=== PATIENT | female | born 1945 | race Caucasian/White ===

== ENCOUNTER 2021-08-24 12:51 | Inpatient (IN) | payer MEDICARE ==
[2021-08-24] MEDS ORDERED: PIPERACILLIN-TAZOBACTAM 3.375 GM in SODIUM CHLORIDE 0.9% 100 ML IVPB STA (15:30)
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
[2021-08-24] MEDS ORDERED: VANCOMYCIN IV PER PHARMACY 1 EACH MISC MISCELLANE PRN ×2 (15:49→20:19)
[2021-08-24] MEDS ORDERED: DILTIAZEM 5 MG/ML 5 ML VIAL IVP STA (17:04)
--- NOTE | 2021-08-24 18:02 | XR ---
EXAMINATION: XR chest 2V DATE AND TIME: 08/24/2021 5:46 PM CLINICAL INDICATION: PHH; bruising TECHNIQUE: AP and lateral views COMPARISON: None FINDINGS: Prominent overlying soft tissues noted. The lungs are clear. The pleural spaces are negative. The cardiac silhouette is mildly enlarged. The remainder of the mediastinal silhouette is unremarkabl e. The skeletal structures show moderately advanced degenerative changes at the glenohumeral joints. No acute skeletal findings. Soft tissues are negative for acute findings. IMPRESSION: NO ACUTE PROCESS.
--- NOTE | 2021-08-24 18:03 | XR ---
PROCEDURE: XR sacrum coccyx - 3V DATE AND TIME: 08/24/2021 5:46 PM CLINICAL INDICATION: PHH; ulcer TECHNIQUE: Department protocol COMPARISON: None FINDINGS: There is no definite acute fracture or malalignment. The soft tissues are unremarkable. IMPRESSION: No definite acute process.
[2021-08-24 18:09] LABS: Basophils % (A) 0 %; Eosinophils % (A) 0 %; HCT 33.5 % (34.0-46.0); HGB 9.8 gm/dL (11.4-16.0); Hypochromasia Moderate; Lymphocytes # (A) 0.4 k/uL (1.0-4.8); Lymphocytes % (A) 2 %; MCH 27.5 pg (25.0-35.0); MCHC 29.2 g/dL (31.0-37.0); MCV 94.2 fL (80.0-100.0); Mean Platelet Volume 9.1; Monocytes # (A) 0.6 k/uL (0-1.0); Monocytes % (A) 4 %; Neutrophils # (A) 14.9 k/uL (1.3-7.7); Neutrophils % (A) 92 %; Platelet Count 426 k/uL (150-450); RBC 3.56 m/uL (3.80-5.40); RDW 15.8 % (11.5-15.5); WBC 16.2 k/uL (3.8-10.6)
[2021-08-24] MEDS: DILTIAZEM 125 MG in SODIUM CHLORIDE 0.9% 100 ML IV SCH (18:11)
[2021-08-24 18:30] LABS: Albumin 2.4 g/dL (3.5-5.0); Potassium 4.2 mmol/L (3.5-5.1); Total Bilirubin 1.9 mg/dL (0.2-1.3); Total Protein 5.5 g/dL (6.3-8.2)
[2021-08-24] MEDS ORDERED: NALOXONE 0.4 MG/ML 1 ML VIAL IV PRN (18:30)
[2021-08-24] MEDS ORDERED: VANCOMYCIN 1,500 MG in SODIUM CHLORIDE 0.9% 250 ML IVPB STA (18:41)
[2021-08-24] MEDS ORDERED: SODIUM CHLORIDE 0.9% 1,000 ML IV ONE (18:43)
[2021-08-24] MEDS: SODIUM CHLORIDE 0.9% 1,000 ML IV SCH (19:12)
[2021-08-24] MEDS: ACETAMINOPHEN TAB 325 MG TAB PO PRN (20:03)
[2021-08-24] MEDS ORDERED: hydroCHLOROthiazide 12.5 MG CAP PO SCH (21:00)
[2021-08-24 23:45] LABS: Glucose,Whole Blood 290 mg/dL (75-99)
[2021-08-25 00:19] LABS: Appearance,Urine Cloudy (Clear); Bacteria,Urine Rare /hpf; Bilirubin,Urine Negative (Negative); Blood,Urine Negative (Negative); Color,Urine Yellow; Glucose,Urine (UA) Trace (Negative); Hyaline Casts,Urine 8 /lpf (0-2); Ketones,Urine Negative (Negative); Leukocyte Esterase,Urine Negative (Negative); Mucus,Urine Rare /hpf; Nitrite,Urine Negative (Negative); Protein,Urine Trace (Negative); RBC,Urine 1 /hpf (0-5); Specific Gravity,Urine 1.018 (1.001-1.035); Squamous Epithelial Cell,Urine <1 /hpf (0-4); Urobilinogen,Urine <2.0 mg/dL (<2.0); WBC,Urine 3 /hpf (0-5)
[2021-08-25] MEDS: SODIUM CHLORIDE 0.9% 1,000 ML IV SCH ×4 (00:30→09:00)
[2021-08-25] MEDS ORDERED: NOREPINEPHRIN 4 MG-0.9% NS PMX 4 MG/250 ML ML IV ONE (02:30)
[2021-08-25] MEDS: NOREPINEPHRINE 4 MG in SODIUM CHLORIDE 0.9% 250 ML IV SCH ×2 (03:04→13:55)
--- NOTE | 2021-08-25 07:47 | XR ---
EXAMINATION TYPE: XR chest 1V DATE OF EXAM: 08/25/2021 COMPARISON: 08/24/2021 INDICATION: Short of breath TECHNIQUE: Single frontal view of the chest is obtained. FINDINGS: The heart size is mildly prominent. The pulmonary vasculature is normal. Mild left lower lobe infiltrate may be developing. Correlate for atelectasis or pneumonia. Advanced degenerative changes bilateral shoulders. IMPRESSION: 1. Clinical correlation recommended for developing left basilar atelectasis or pneumonia
[2021-08-25 08:15] LABS: Glucose,Whole Blood 286 mg/dL (75-99)
[2021-08-25] MEDS: PANTOPRAZOLE 40 MG/10 ML VIAL IV SCH (08:59)
[2021-08-25] MEDS: METOPROLOL TARTRATE 25 MG TAB PO SCH ×2 (09:00→17:06)
[2021-08-25] MEDS ORDERED: lisinopriL 10 MG TAB PO SCH (09:00)
[2021-08-25] MEDS: ATORVASTATIN 40 MG TAB PO SCH (09:00)
[2021-08-25] MEDS: INSULIN ASPART (NovoLOG) 100 UNIT/ML VIAL SQ SCH ×4 (09:06→20:49)
[2021-08-25 10:13] LABS: Calcium 7.5 mg/dL (8.4-10.2); Magnesium 2.3 mg/dL (1.6-2.3); Potassium 3.6 mmol/L (3.5-5.1); Total Bilirubin 1.1 mg/dL (0.2-1.3); Total Protein 4.7 g/dL (6.3-8.2)
[2021-08-25 10:16] LABS: Anisocytosis Slight; Basophils # (A) 0.1 k/uL (0-0.2); Basophils % (A) 1 %; Eosinophils % (A) 0 %; HGB 8.8 gm/dL (11.4-16.0); Hypochromasia Marked; Lymphocytes # (A) 0.6 k/uL (1.0-4.8); Lymphocytes % (A) 4 %; MCHC 30.3 g/dL (31.0-37.0); MCV 95.7 fL (80.0-100.0); Mean Platelet Volume 8.3; Monocytes # (A) 0.6 k/uL (0-1.0); Monocytes % (A) 4 %; Neutrophils # (A) 13.1 k/uL (1.3-7.7); Neutrophils % (A) 89 %; Platelet Count 438 k/uL (150-450); RBC 3.03 m/uL (3.80-5.40); RDW 16.3 % (11.5-15.5); WBC 14.8 k/uL (3.8-10.6)
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
[2021-08-25] MEDS ORDERED: POTASSIUM CHLORIDE ER 20 MEQ TAB.ER PO STA (10:56)
--- NOTE | 2021-08-25 11:20 | US ---
EXAMINATION TYPE: US kidneys/renal and bladder DATE OF EXAM: 08/25/2021 COMPARISON: NONE CLINICAL HISTORY: manjinder. Abnormal labs. ICU patient. Bladder candelario. EXAM MEASUREMENTS: Right Kidney: 10.7 x 4.5 x 4.7 cm Left Kidney: 10.2 x 4.9 x 5.2 cm Right Kidney: No hydronephrosis or masses seen Left Kidney: Limited due to patient body habitus and position. No prominent masses or lesions seen Bladder: unable to visualize IMPRESSION: 1. Normal renal ultrasound as limitedly visualized.
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
[2021-08-25 13:24] LABS: Glucose,Whole Blood 256 mg/dL (75-99)
[2021-08-25] MEDS: AMPICILLIN-SULBACTAM 3 GM in SODIUM CHLORIDE 0.9% 100 ML IVPB SCH (13:25)
[2021-08-25] MEDS: DILTIAZEM 125 MG in SODIUM CHLORIDE 0.9% 100 ML IV SCH (13:53)
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
[2021-08-25 17:11] LABS: Glucose,Whole Blood 195 mg/dL (75-99)
[2021-08-25] MEDS: DEXTROSE 5% IN WATER 1,000 ML with SODIUM BICARB (1 MEQ/ML) 150 ML IV SCH (17:12)
[2021-08-25] MEDS ORDERED: VANCOMYCIN 1,500 MG in SODIUM CHLORIDE 0.9% 250 ML IVPB ONE (18:00)
[2021-08-25 20:41] LABS: Glucose,Whole Blood 186 mg/dL (75-99)
[2021-08-25] MEDS: HYDROmorphone 0.5 MG/0.5 ML SYRINGE IVP PRN (21:49)
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
[2021-08-26] MEDS: NOREPINEPHRINE 4 MG in SODIUM CHLORIDE 0.9% 250 ML IV SCH ×2 (02:00→10:07)
[2021-08-26] MEDS: AMPICILLIN-SULBACTAM 3 GM in SODIUM CHLORIDE 0.9% 100 ML IVPB SCH ×3 (02:22→20:59)
[2021-08-26] MEDS: DEXTROSE 5% IN WATER 1,000 ML with SODIUM BICARB (1 MEQ/ML) 150 ML IV SCH (06:00)
[2021-08-26 07:01] LABS: Anisocytosis Slight; Basophils # (A) 0.1 k/uL (0-0.2); Basophils % (A) 1 %; Eosinophils # (A) 0.1 k/uL (0-0.7); Eosinophils % (A) 1 %; HCT 30.6 % (34.0-46.0); Hypochromasia Marked; Lymphocytes # (A) 0.3 k/uL (1.0-4.8); Lymphocytes % (A) 3 %; MCH 27.8 pg (25.0-35.0); MCHC 29.4 g/dL (31.0-37.0); MCV 94.3 fL (80.0-100.0); Mean Platelet Volume 8.2; Monocytes # (A) 0.8 k/uL (0-1.0); Monocytes % (A) 7 %; Neutrophils # (A) 10.4 k/uL (1.3-7.7); Neutrophils % (A) 86 %; Platelet Count 361 k/uL (150-450); RBC 3.25 m/uL (3.80-5.40); RDW 16.1 % (11.5-15.5); WBC 12.1 k/uL (3.8-10.6)
[2021-08-26 07:12] LABS: Albumin 1.9 g/dL (3.5-5.0); Calcium 7.7 mg/dL (8.4-10.2); Potassium 3.3 mmol/L (3.5-5.1); Total Bilirubin 0.9 mg/dL (0.2-1.3); Total Protein 4.5 g/dL (6.3-8.2)
[2021-08-26 07:12] LABS: Glucose,Whole Blood 233 mg/dL (75-99)
[2021-08-26] MEDS: INSULIN ASPART (NovoLOG) 100 UNIT/ML VIAL SQ SCH ×4 (07:14→20:59)
[2021-08-26 07:48] LABS: Vancomycin,Random 23.8 ug/mL
[2021-08-26] MEDS: ATORVASTATIN 40 MG TAB PO SCH (08:38)
[2021-08-26] MEDS: PANTOPRAZOLE 40 MG/10 ML VIAL IV SCH (08:38)
[2021-08-26] MEDS: METOPROLOL TARTRATE 25 MG TAB PO SCH ×2 (08:38→17:42)
[2021-08-26] MEDS ORDERED: POTASSIUM CHLORIDE ER 20 MEQ TAB.ER PO STA (09:18)
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
--- NOTE | 2021-08-26 10:06 | P.PN ---
Subjective Patient is seen in follow-up for acute kidney injury. Renal function improving. Nonoliguric. On bicarb drip. Also on Levophed. Vital signs are stable. General: Awake. No acute distress. HEENT: Head exam is unremarkable. LUNGS: Breath sounds decreased. HEART: Irregular rate and rhythm. ABDOMEN: Soft, no distention. EXTREMITITES: Right AKA noted. Chronic changes noted left lower extremity. Objective - Vital Signs Vital signs: Vital Signs Temp 97.7 F 08/26/21 08:00 Pulse 128 H 08/26/21 09:00 Resp 15 08/26/21 09:00 BP 116/72 08/26/21 09:00 Pulse Ox 94 L 08/26/21 09:00 FiO2 Intake & Output 08/25/21 08/26/21 08/26/21 18:59 06:59 18:59 Intake Total 2109.976 2074.545 452.424 Output Total 595 935 264 Balance 8424.305 8727.545 188.424 Weight 95.1 kg Intake: IV 890 1310 330 0.9 NACl- 110 30 D5 with Sodium Bicarb ( 1100 300 150mEq) Sodium Chloride 0.9% 1, 890 000 ml @ 100 mls/hr IV . Q10H [facility] Rx#:[id number] Unasyn 3gm 100 Intake, IV Titration 1219.976 339.545 122.424 Amount Ampicillin-Sulbactam 3 gm 200 In Sodium Chloride 0.9% 100 ml @ 200 mls/hr IVPB Q12H [facility] Rx#:[id number] Dextrose 5% in Water 1, 500 000 ml @ 100 mls/hr IV . [id number] [facility] with Sodium Bicarb (1 Meq/ml) 150 ml Rx#:[id number] Diltiazem 125 mg In 60.333 Sodium Chloride 0.9% 100 ml @ 5 MG/HR 5 mls/hr IV .Q24H [facility] Rx#:[id number] Norepinephrine 4 mg In 209.643 339.545 122.424 Sodium Chloride 0.9% 250 ml @ 0.05 MCG/KG/MIN 19. 01 mls/hr IV .[id number] [facility] Rx#:[id number] Vancomycin 1,500 mg In 250 Sodium Chloride 0.9% 250 ml @ 125 mls/hr IVPB ONCE ONE Rx#:[id number] Oral 425 Output: Urine 595 935 264 Other: Voiding Method Indwelling Catheter Indwelling Catheter Indwelling Catheter # Bowel Movements 1 - Labs CBC & Chem 7: 08/26/21 06:41 08/26/21 06:41 Labs: Abnormal Lab Results - Last 24 Hours (Table) 08/25/21 08/25/21 08/25/21 Range/Units 09:28 09:28 13:23 WBC 14.8 H (3.8-10.6) k/uL RBC 3.03 L (3.80-5.40) m/uL Hgb 8.8 L (11.4-16.0) gm/dL Hct 29.0 L (34.0-46.0) % MCHC 30.3 L (31.0-37.0) g/dL RDW 16.3 H (11.5-15.5) % Neutrophils # 13.1 H (1.3-7.7) k/uL Lymphocytes # 0.6 L (1.0-4.8) k/uL Potassium (3.5-5.1) mmol/L Chloride 109 H (98-107) mmol/L Carbon Dioxide 15 L (22-30) mmol/L BUN 118 H* (7-17) mg/dL Creatinine 1.84 H (0.52-1.04) mg/dL Glucose 241 H (74-99) mg/dL POC Glucose (mg/dL) 256 H (75-99) mg/dL Hemoglobin A1c (0.0-6.0) % Calcium 7.5 L (8.4-10.2) mg/dL AST 111 H (14-36) U/L ALT 56 H (4-34) U/L Total Protein 4.7 L (6.3-8.2) g/dL Albumin 2.0 L (3.5-5.0) g/dL 08/25/21 08/25/21 08/26/21 Range/Units 17:10 20:39 06:41 WBC (3.8-10.6) k/uL RBC (3.80-5.40) m/uL Hgb (11.4-16.0) gm/dL Hct (34.0-46.0) % MCHC (31.0-37.0) g/dL RDW (11.5-15.5) % Neutrophils # (1.3-7.7) k/uL Lymphocytes # (1.0-4.8) k/uL Potassium (3.5-5.1) mmol/L Chloride (98-107) mmol/L Carbon Dioxide (22-30) mmol/L BUN (7-17) mg/dL Creatinine (0.52-1.04) mg/dL Glucose (74-99) mg/dL POC Glucose (mg/dL) 195 H 186 H (75-99) mg/dL Hemoglobin A1c 8.4 H (0.0-6.0) % Calcium (8.4-10.2) mg/dL AST (14-36) U/L ALT (4-34) U/L Total Protein (6.3-8.2) g/dL Albumin (3.5-5.0) g/dL 08/26/21 08/26/21 08/26/21 Range/Units 06:41 06:41 07:09 WBC 12.1 H (3.8-10.6) k/uL RBC 3.25 L (3.80-5.40) m/uL Hgb 9.0 L (11.4-16.0) gm/dL Hct 30.6 L (34.0-46.0) % MCHC 29.4 L (31.0-37.0) g/dL RDW 16.1 H (11.5-15.5) % Neutrophils # 10.4 H (1.3-7.7) k/uL Lymphocytes # 0.3 L (1.0-4.8) k/uL Potassium 3.3 L (3.5-5.1) mmol/L Chloride 109 H (98-107) mmol/L Carbon Dioxide (22-30) mmol/L BUN 93 H (7-17) mg/dL Creatinine 1.26 H (0.52-1.04) mg/dL Glucose 222 H (74-99) mg/dL POC Glucose (mg/dL) 233 H (75-99) mg/dL Hemoglobin A1c (0.0-6.0) % Calcium 7.7 L (8.4-10.2) mg/dL AST 80 H (14-36) U/L ALT 45 H (4-34) U/L Total Protein 4.5 L (6.3-8.2) g/dL Albumin 1.9 L (3.5-5.0) g/dL Microbiology - Last 24 Hours (Table) 08/25/21 13:50 Urine Culture - Preliminary Urine,Catheterized 08/24/21 17:14 Blood Culture - Preliminary Blood No Growth after 24 hours 08/24/21 17:00 Blood Culture - Preliminary Blood No Growth after 24 hours Assessment and Plan Plan: Assessment: 1. Acute kidney injury secondary to ATN secondary to septic shock. Creatinine 2.2 on admission - 1.26 today. Unknown baseline renal function. UA with trace protein. Nonoliguric. No hydronephrosis noted on kidney ultrasound. 2. Sacral decubitus ulcer. On antibiotics. Scheduled for debridement tomorrow. 3. A. fib with RVR maintained on metoprolol. 4. Metabolic acidosis secondary to acute kidney injury and lactic acidosis. Improved. 5. Hypokalemia from poor intake. Magnesium normal. Plan: Stop bicarb drip. Start normal saline at 75 mL an hour. Replace potassium. Wean vasopressors. Follow-up cultures. Continue to monitor renal function and urine output. Monitor vancomycin levels. Dose to be adjusted for renal function.
[2021-08-26] MEDS: SODIUM CHLORIDE 0.9% 1,000 ML IV SCH (10:09)
--- NOTE | 2021-08-26 10:59 | P.PN ---
Subjective Progress Note Date: 08/26/21 The patient is a 75-year-old female who is currently admitted to the hospital with septicemia. Cardiology was consulted for A. fib with RVR, which is a new finding for the patient. She is currently on IV Cardizem as well as leaflet drip for hypotension. Heart rates are currently in the 1 teens to 120s. The patient was interviewed and examined in the ICU. She states she did well overnight. She does have shortness of breath, however feels comfortable at rest. No chest pains. GENERAL: Ill-appearing, obese female. NECK: Supple without JVD or thyromegaly. LUNGS: Breath sounds diminished to auscultation bilaterally. Respiration equal and unlabored. No wheezes, rales or rhonchi. HEART: Irregular rate and rhythm without murmurs, rubs or gallops. S1 and S2 heard. Notably tachycardic EXTREMITIES: Right AKA. No clubbing or cyanosis. Left peripheral pulses palpable. Moderate generalized edema VITALS: Blood pressure 86/61. Heart rate 102, respiratory rate 18, SpO2 95% TELEMETRY: A. fib with heart rate in the 1 teens to 120s LABS: WBC 12.1, hemoglobin 9.0, hematocrit 30.6, platelet 361, sodium 140, potassium 3.3, BUN 93, creatinine 1.26, AST 80, ALT 45 IMPRESSION: A. fib with RVR, new onset, no history per patient Septicemia, being followed by infectious disease Decubitus ulcer Chronic kidney disease, GFR 42 Hypokalemia, supplementation per protocol Hypotension, management per design project manager PLAN: No change in cardiac medications at this time Anticoagulation indicated, however this will be managed by the primary team based upon her fall risk and pending need for any surgical procedures Further recommendations to be based on clinical course I am dictating on behalf of Dr Marco Sinclair's history/physical and assessment/plan. Objective - Vital Signs Vital signs: Vital Signs Temp 97.7 F 08/26/21 08:00 Pulse 102 H 08/26/21 10:00 Resp 18 08/26/21 10:00 BP 86/61 08/26/21 10:00 Pulse Ox 95 08/26/21 10:00 FiO2 Intake & Output 08/25/21 08/26/21 08/26/21 18:59 06:59 18:59 Intake Total 2109.976 2074.545 587.771 Output Total 595 935 304 Balance 9245.555 0360.545 283.771 Weight 95.1 kg Intake: IV 890 1310 440 0.9 NACl- 110 40 D5 with Sodium Bicarb ( 1100 400 150mEq) Sodium Chloride 0.9% 1, 890 000 ml @ 100 mls/hr IV . Q10H [facility] Rx#:[id number] Unasyn 3gm 100 Intake, IV Titration 1219.976 339.545 147.771 Amount Ampicillin-Sulbactam 3 gm 200 In Sodium Chloride 0.9% 100 ml @ 200 mls/hr IVPB Q12H [facility] Rx#:[id number] Dextrose 5% in Water 1, 500 000 ml @ 100 mls/hr IV . [id number] [facility] with Sodium Bicarb (1 Meq/ml) 150 ml Rx#:[id number] Diltiazem 125 mg In 60.333 Sodium Chloride 0.9% 100 ml @ 5 MG/HR 5 mls/hr IV .Q24H [facility] Rx#:[id number] Norepinephrine 4 mg In 209.643 339.545 147.771 Sodium Chloride 0.9% 250 ml @ 0.05 MCG/KG/MIN 19. 01 mls/hr IV .[id number] [facility] Rx#:[id number] Vancomycin 1,500 mg In 250 Sodium Chloride 0.9% 250 ml @ 125 mls/hr IVPB ONCE ONE Rx#:[id number] Oral 425 Output: Urine 595 935 304 Other: Voiding Method Indwelling Catheter Indwelling Catheter Indwelling Catheter # Bowel Movements 1 - Labs CBC & Chem 7: 08/26/21 06:41 08/26/21 06:41 Labs: Abnormal Lab Results - Last 24 Hours (Table) 08/25/21 08/25/21 08/25/21 Range/Units 13:23 17:10 20:39 WBC (3.8-10.6) k/uL RBC (3.80-5.40) m/uL Hgb (11.4-16.0) gm/dL Hct (34.0-46.0) % MCHC (31.0-37.0) g/dL RDW (11.5-15.5) % Neutrophils # (1.3-7.7) k/uL Lymphocytes # (1.0-4.8) k/uL Potassium (3.5-5.1) mmol/L Chloride (98-107) mmol/L BUN (7-17) mg/dL Creatinine (0.52-1.04) mg/dL Glucose (74-99) mg/dL POC Glucose (mg/dL) 256 H 195 H 186 H (75-99) mg/dL Hemoglobin A1c (0.0-6.0) % Calcium (8.4-10.2) mg/dL AST (14-36) U/L ALT (4-34) U/L Total Protein (6.3-8.2) g/dL Albumin (3.5-5.0) g/dL 08/26/21 08/26/21 08/26/21 Range/Units 06:41 06:41 06:41 WBC 12.1 H (3.8-10.6) k/uL RBC 3.25 L (3.80-5.40) m/uL Hgb 9.0 L (11.4-16.0) gm/dL Hct 30.6 L (34.0-46.0) % MCHC 29.4 L (31.0-37.0) g/dL RDW 16.1 H (11.5-15.5) % Neutrophils # 10.4 H (1.3-7.7) k/uL Lymphocytes # 0.3 L (1.0-4.8) k/uL Potassium 3.3 L (3.5-5.1) mmol/L Chloride 109 H (98-107) mmol/L BUN 93 H (7-17) mg/dL Creatinine 1.26 H (0.52-1.04) mg/dL Glucose 222 H (74-99) mg/dL POC Glucose (mg/dL) (75-99) mg/dL Hemoglobin A1c 8.4 H (0.0-6.0) % Calcium 7.7 L (8.4-10.2) mg/dL AST 80 H (14-36) U/L ALT 45 H (4-34) U/L Total Protein 4.5 L (6.3-8.2) g/dL Albumin 1.9 L (3.5-5.0) g/dL 08/26/21 Range/Units 07:09 WBC (3.8-10.6) k/uL RBC (3.80-5.40) m/uL Hgb (11.4-16.0) gm/dL Hct (34.0-46.0) % MCHC (31.0-37.0) g/dL RDW (11.5-15.5) % Neutrophils # (1.3-7.7) k/uL Lymphocytes # (1.0-4.8) k/uL Potassium (3.5-5.1) mmol/L Chloride (98-107) mmol/L BUN (7-17) mg/dL Creatinine (0.52-1.04) mg/dL Glucose (74-99) mg/dL POC Glucose (mg/dL) 233 H (75-99) mg/dL Hemoglobin A1c (0.0-6.0) % Calcium (8.4-10.2) mg/dL AST (14-36) U/L ALT (4-34) U/L Total Protein (6.3-8.2) g/dL Albumin (3.5-5.0) g/dL Microbiology - Last 24 Hours (Table) 08/25/21 13:50 Urine Culture - Preliminary Urine,Catheterized 08/24/21 17:14 Blood Culture - Preliminary Blood No Growth after 24 hours 08/24/21 17:00 Blood Culture - Preliminary Blood No Growth after 24 hours
[2021-08-26 11:20] LABS: Glucose,Whole Blood 217 mg/dL (75-99)
--- NOTE | 2021-08-26 11:28 | P.PN ---
Progress Note - Text Progress Note Date: 08/26/21 Patient been stable. We will plan for debridement of decubitus ulcer on Saturday.
[2021-08-26] MEDS: ACETAMINOPHEN TAB 325 MG TAB PO PRN (13:02)
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
[2021-08-26] MEDS: HYDROmorphone 0.5 MG/0.5 ML SYRINGE IVP PRN (14:24)
[2021-08-26 17:32] LABS: Glucose,Whole Blood 247 mg/dL (75-99)
[2021-08-26] MEDS: VANCOMYCIN 1,750 MG in SODIUM CHLORIDE 0.9% 500 ML 500 ML IVPB SCH (17:41)
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
[2021-08-26 20:54] LABS: Glucose,Whole Blood 221 mg/dL (75-99)
[2021-08-26] MEDS: INSULIN DETEMIR (LEVEMIR) 100 UNIT/ML SYR SQ SCH (21:00)
[2021-08-27] MEDS: NOREPINEPHRINE 4 MG in SODIUM CHLORIDE 0.9% 250 ML IV SCH ×2 (00:35→22:55)
[2021-08-27] MEDS: HYDROmorphone 0.5 MG/0.5 ML SYRINGE IVP PRN ×2 (06:37→20:03)
[2021-08-27] MEDS: AMPICILLIN-SULBACTAM 3 GM in SODIUM CHLORIDE 0.9% 100 ML IVPB SCH ×3 (06:37→21:19)
[2021-08-27 06:46] LABS: Glucose,Whole Blood 124 mg/dL (75-99)
[2021-08-27 07:57] LABS: Potassium 4.2 mmol/L (3.5-5.1)
[2021-08-27] MEDS: PANTOPRAZOLE 40 MG/10 ML VIAL IV SCH (07:58)
[2021-08-27] MEDS: ATORVASTATIN 40 MG TAB PO SCH (07:58)
[2021-08-27] MEDS: METOPROLOL TARTRATE 25 MG TAB PO SCH (07:58)
[2021-08-27] MEDS: INSULIN ASPART (NovoLOG) 100 UNIT/ML VIAL SQ SCH ×4 (07:59→21:21)
[2021-08-27 08:06] LABS: Anisocytosis Slight; Basophils # (A) 0.1 k/uL (0-0.2); Basophils % (A) 0 %; Eosinophils # (A) 0.1 k/uL (0-0.7); Eosinophils % (A) 0 %; HCT 29.8 % (34.0-46.0); HGB 9.3 gm/dL (11.4-16.0); Hypochromasia Moderate; Lymphocytes # (A) 0.6 k/uL (1.0-4.8); Lymphocytes % (A) 5 %; MCH 28.7 pg (25.0-35.0); MCHC 31.4 g/dL (31.0-37.0); MCV 91.2 fL (80.0-100.0); Mean Platelet Volume 8.6; Monocytes % (A) 8 %; Neutrophils # (A) 10.1 k/uL (1.3-7.7); Neutrophils % (A) 83 %; Platelet Count 385 k/uL (150-450); RBC 3.26 m/uL (3.80-5.40); RDW 16.6 % (11.5-15.5); WBC 12.1 k/uL (3.8-10.6)
[2021-08-27] MEDS: DILTIAZEM 125 MG in SODIUM CHLORIDE 0.9% 100 ML IV SCH ×3 (08:34→23:35)
--- NOTE | 2021-08-27 09:20 | P.PN ---
Subjective Patient is seen in follow-up for acute kidney injury. Renal function improving. Nonoliguric. Receiving normal saline. Also on Levophed. Vital signs are stable. On vasopressor support. General: Awake. No acute distress. HEENT: Head exam is unremarkable. LUNGS: Breath sounds decreased. HEART: Irregular rate and rhythm. ABDOMEN: Soft, no distention. EXTREMITITES: Right AKA noted. Chronic changes noted left lower extremity. Objective - Vital Signs Vital signs: Vital Signs Temp 97.7 F 08/27/21 00:00 Pulse 144 H 08/27/21 06:00 Resp 22 08/27/21 06:00 BP 112/92 08/27/21 06:00 Pulse Ox 95 08/27/21 06:00 FiO2 Intake & Output 08/26/21 08/27/21 08/27/21 18:59 06:59 18:59 Intake Total 9577.785 5573.819 75 Output Total 649 590 35 Balance 1182.952 654.819 40 Weight 95.1 kg 97.2 kg Intake: IV 1075 1100 75 0.9 NACl- 575 900 75 D5 with Sodium Bicarb ( 400 150mEq) Unasyn 3gm 100 200 Intake, IV Titration 756.952 144.819 Amount Norepinephrine 4 mg In 256.952 144.819 Sodium Chloride 0.9% 250 ml @ 0.05 MCG/KG/MIN 19. 01 mls/hr IV .[id number] [facility] Rx#:[id number] Vancomycin 1,750 mg In 500 Sodium Chloride 0.9% 500 ml 500 ml @ 167 mls/hr IVPB Q24HR@1600 [facility] Rx#: [id number] Output: Urine 649 590 35 Other: Voiding Method Indwelling Catheter Indwelling Catheter - Labs CBC & Chem 7: 08/27/21 07:19 08/27/21 07:19 Labs: Abnormal Lab Results - Last 24 Hours (Table) 08/26/21 08/26/21 08/26/21 Range/Units 11:18 17:29 20:52 WBC (3.8-10.6) k/uL RBC (3.80-5.40) m/uL Hgb (11.4-16.0) gm/dL Hct (34.0-46.0) % RDW (11.5-15.5) % Neutrophils # (1.3-7.7) k/uL Lymphocytes # (1.0-4.8) k/uL Chloride (98-107) mmol/L Carbon Dioxide (22-30) mmol/L BUN (7-17) mg/dL Creatinine (0.52-1.04) mg/dL Glucose (74-99) mg/dL POC Glucose (mg/dL) 217 H 247 H 221 H (75-99) mg/dL Calcium (8.4-10.2) mg/dL 08/27/21 08/27/21 08/27/21 Range/Units 06:44 07:19 07:19 WBC 12.1 H (3.8-10.6) k/uL RBC 3.26 L (3.80-5.40) m/uL Hgb 9.3 L (11.4-16.0) gm/dL Hct 29.8 L (34.0-46.0) % RDW 16.6 H (11.5-15.5) % Neutrophils # 10.1 H (1.3-7.7) k/uL Lymphocytes # 0.6 L (1.0-4.8) k/uL Chloride 113 H (98-107) mmol/L Carbon Dioxide 21 L (22-30) mmol/L BUN 73 H (7-17) mg/dL Creatinine 1.06 H (0.52-1.04) mg/dL Glucose 130 H (74-99) mg/dL POC Glucose (mg/dL) 124 H (75-99) mg/dL Calcium 8.0 L (8.4-10.2) mg/dL Microbiology - Last 24 Hours (Table) 08/24/21 17:00 Blood Culture - Preliminary Blood No Growth after 48 hours 08/24/21 17:14 Blood Culture - Preliminary Blood No Growth after 48 hours 08/25/21 16:06 Blood Culture - Preliminary Blood No Growth after 24 hours 08/25/21 13:50 Urine Culture - Final Urine,Catheterized Assessment and Plan Plan: Assessment: 1. Acute kidney injury secondary to ATN secondary to septic shock. Creatinine 2.2 on admission - 1.06 today. Unknown baseline renal function. UA with trace protein. Nonoliguric. No hydronephrosis noted on kidney ultrasound. 2. Sacral decubitus ulcer. On antibiotics. Scheduled for debridement on Saturday. 3. A. fib with RVR maintained on metoprolol. 4. Metabolic acidosis secondary to acute kidney injury and lactic acidosis. Improved. 5. Hypokalemia from poor intake. Magnesium normal. Replace. Better. Plan: Maintain normal saline at 75 mL an hour. Wean vasopressors. Follow-up cultures. Continue to monitor renal function and urine output. Monitor vancomycin levels. Dose to be adjusted for renal function.
[2021-08-27 11:08] LABS: Glucose,Whole Blood 126 mg/dL (75-99)
[2021-08-27] MEDS: SODIUM CHLORIDE 0.9% 1,000 ML IV SCH ×3 (11:10→23:36)
--- NOTE | 2021-08-27 11:40 | P.PN ---
Subjective Progress Note Date: 08/27/21 The patient is a 75-year-old female who is currently admitted to the hospital with septicemia. Cardiology was consulted for A. fib with RVR, which is a new finding for the patient. IV Cardizem was held for hypotension. The patient is currently on low-dose levofed. The patient was interviewed and examined in the ICU. She states she did well overnight. She does have shortness of breath, however feels comfortable at rest. No chest pains. GENERAL: Ill-appearing, obese female. NECK: Supple without JVD or thyromegaly. LUNGS: Breath sounds diminished to auscultation bilaterally. Respiration equal and unlabored. No wheezes, rales or rhonchi. HEART: Irregular rate and rhythm without murmurs, rubs or gallops. S1 and S2 heard. Notably tachycardic EXTREMITIES: Right AKA. No clubbing or cyanosis. Left peripheral pulses palpable. Moderate generalized edema VITALS: Blood pressure 106/92, pulse 131, respiratory rate 16, SpO2 97% TELEMETRY: A. fib with heart rate in the 120s to 140s LABS: WBC 12.1, hemoglobin 9.3, hematocrit 29.8, platelet 385, sodium 143, potassium 4.2, BUN 73, creatinine 1.06 IMPRESSION: A. fib with RVR, new onset, no history per patient Septicemia, being followed by infectious disease Decubitus ulcer Chronic kidney disease, GFR 42 Hypokalemia, supplementation per protocol Hypotension, management per registered public surveyor PLAN: Increase metoprolol to 3 times a day Anticoagulation indicated, however this will be managed by the primary team based upon her fall risk and pending need for any surgical procedures Echocardiogram once heart rates are better controlled Further recommendations to be based on clinical course I am dictating on behalf of Dr Marco Sinclair's history/physical and assessment/plan. Objective - Vital Signs Vital signs: Vital Signs Temp 97.8 F 08/27/21 08:00 Pulse 122 H 08/27/21 11:00 Resp 14 08/27/21 11:00 BP 80/53 08/27/21 11:00 Pulse Ox 96 08/27/21 11:00 FiO2 Intake & Output 08/26/21 08/27/21 08/27/21 18:59 06:59 18:59 Intake Total 1837.540 7252.819 595.960 Output Total 649 590 260 Balance 1182.952 654.819 335.960 Weight 95.1 kg 97.2 kg Intake: IV 1075 1100 375 0.9 NACl- 575 900 375 D5 with Sodium Bicarb ( 400 150mEq) Unasyn 3gm 100 200 Intake, IV Titration 756.952 144.819 220.960 Amount Norepinephrine 4 mg In 256.952 144.819 220.960 Sodium Chloride 0.9% 250 ml @ 0.05 MCG/KG/MIN 19. 01 mls/hr IV .[id number] [facility] Rx#:[id number] Vancomycin 1,750 mg In 500 Sodium Chloride 0.9% 500 ml 500 ml @ 167 mls/hr IVPB Q24HR@1600 [facility] Rx#: [id number] Output: Urine 649 590 260 Other: Voiding Method Indwelling Catheter Indwelling Catheter - Labs CBC & Chem 7: 08/27/21 07:19 08/27/21 07:19 Labs: Abnormal Lab Results - Last 24 Hours (Table) 08/26/21 08/26/21 08/27/21 Range/Units 17:29 20:52 06:44 WBC (3.8-10.6) k/uL RBC (3.80-5.40) m/uL Hgb (11.4-16.0) gm/dL Hct (34.0-46.0) % RDW (11.5-15.5) % Neutrophils # (1.3-7.7) k/uL Lymphocytes # (1.0-4.8) k/uL Chloride (98-107) mmol/L Carbon Dioxide (22-30) mmol/L BUN (7-17) mg/dL Creatinine (0.52-1.04) mg/dL Glucose (74-99) mg/dL POC Glucose (mg/dL) 247 H 221 H 124 H (75-99) mg/dL Calcium (8.4-10.2) mg/dL 08/27/21 08/27/21 08/27/21 Range/Units 07:19 07:19 11:06 WBC 12.1 H (3.8-10.6) k/uL RBC 3.26 L (3.80-5.40) m/uL Hgb 9.3 L (11.4-16.0) gm/dL Hct 29.8 L (34.0-46.0) % RDW 16.6 H (11.5-15.5) % Neutrophils # 10.1 H (1.3-7.7) k/uL Lymphocytes # 0.6 L (1.0-4.8) k/uL Chloride 113 H (98-107) mmol/L Carbon Dioxide 21 L (22-30) mmol/L BUN 73 H (7-17) mg/dL Creatinine 1.06 H (0.52-1.04) mg/dL Glucose 130 H (74-99) mg/dL POC Glucose (mg/dL) 126 H (75-99) mg/dL Calcium 8.0 L (8.4-10.2) mg/dL Microbiology - Last 24 Hours (Table) 08/24/21 17:00 Blood Culture - Preliminary Blood No Growth after 48 hours 08/24/21 17:14 Blood Culture - Preliminary Blood No Growth after 48 hours 08/25/21 16:06 Blood Culture - Preliminary Blood No Growth after 24 hours 08/25/21 13:50 Urine Culture - Final Urine,Catheterized
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
--- NOTE | 2021-08-27 11:58 | P.PN ---
Progress Note - Text Progress Note Date: 08/27/21 Patient remains clinically unchanged. We will plan for debridement gives ulcer tomorrow.
[2021-08-27] MEDS ORDERED: METOPROLOL TARTRATE 25 MG TAB PO SCH (16:00)
[2021-08-27 16:02] LABS: Glucose,Whole Blood 200 mg/dL (75-99)
[2021-08-27] MEDS: VANCOMYCIN 1,750 MG in SODIUM CHLORIDE 0.9% 500 ML 500 ML IVPB SCH (16:27)
[2021-08-27] MEDS ORDERED: TERBUTALINE FOR EXTRAVASATION 1 MG/ML VIAL SQ STA (17:15)
[2021-08-27] MEDS: METOPROLOL TARTRATE 50 MG TAB PO SCH (19:49)
[2021-08-27 20:55] LABS: Glucose,Whole Blood 319 mg/dL (75-99)
[2021-08-27] MEDS: HEPARIN SODIUM,PORCINE/PF 5,000 UNIT/0.5 ML SYRINGE SQ SCH (21:20)
[2021-08-27] MEDS: INSULIN DETEMIR (LEVEMIR) 100 UNIT/ML SYR SQ SCH (21:21)
[2021-08-28] MEDS: AMPICILLIN-SULBACTAM 3 GM in SODIUM CHLORIDE 0.9% 100 ML IVPB SCH ×3 (04:55→20:58)
[2021-08-28 06:11] LABS: Glucose,Whole Blood 232 mg/dL (75-99)
[2021-08-28] MEDS: HYDROmorphone 0.5 MG/0.5 ML SYRINGE IVP PRN ×3 (06:48→18:25)
[2021-08-28 07:47] LABS: Calcium 7.5 mg/dL (8.4-10.2); Potassium 3.9 mmol/L (3.5-5.1)
[2021-08-28] MEDS: PANTOPRAZOLE 40 MG/10 ML VIAL IV SCH (08:37)
[2021-08-28] MEDS: HEPARIN SODIUM,PORCINE/PF 5,000 UNIT/0.5 ML SYRINGE SQ SCH (08:37)
[2021-08-28] MEDS: METOPROLOL TARTRATE 50 MG TAB PO SCH ×3 (08:37→21:00)
[2021-08-28] MEDS: ATORVASTATIN 40 MG TAB PO SCH (08:37)
[2021-08-28] MEDS: INSULIN ASPART (NovoLOG) 100 UNIT/ML VIAL SQ SCH ×4 (09:21→20:58)
--- NOTE | 2021-08-28 10:22 | P.PN ---
Subjective Patient is in atrial fibrillation with poorly controlled ventricular rate. Blood pressures have been low. She is awaiting wounded debridement by surgeon. On exam patient is comfortable at rest heart rate is poorly controlled blood pressure is 90/60 chest exam reveals good air entry bilaterally heart exam reveals first and second heart sounds are regular rhythm systolic murmur at the apex abdomen is soft exam extremities shows chronic stasis changes edema decubitus ulcer Labs show that the hemoglobin is 9.3 Persistent atrial fibrillation with poorly controlled ventricular rate Patient is to have debridement of decubitus ulcer. Once that is done we will start the patient on intravenous heparin. I will add amiodarone for rate control. He will she will continue beta blockers and Cardizem at this time Objective - Vital Signs Vital signs: Vital Signs Temp 97.6 F 08/28/21 08:00 Pulse 96 08/28/21 10:00 Resp 21 08/28/21 10:00 BP 79/40 08/28/21 10:00 Pulse Ox 98 08/28/21 10:00 FiO2 Intake & Output 08/27/21 08/28/21 08/28/21 18:59 06:59 18:59 Intake Total 2980.387 6993.775 320.57 Output Total 615 513 60 Balance 776.681 876.775 260.57 Weight 98.6 kg Intake: IV 900 1035 320 0.9 NACl- 900 900 300 Cardizem 35 20 Unasyn 3gm 100 Intake, IV Titration 241.681 54.775 0.57 Amount Diltiazem 125 mg In 0 Sodium Chloride 0.9% 100 ml @ 5 MG/HR 5 mls/hr IV .Q24H [facility] Rx#:[id number] Norepinephrine 4 mg In 241.681 54.775 0.57 Sodium Chloride 0.9% 250 ml @ 0.05 MCG/KG/MIN 19. 01 mls/hr IV .[id number] [facility] Rx#:[id number] Oral 250 300 Output: Urine 615 513 60 Other: Voiding Method Indwelling Catheter Indwelling Catheter - Labs CBC & Chem 7: 08/27/21 07:19 08/28/21 06:22 Labs: Abnormal Lab Results - Last 24 Hours (Table) 08/27/21 08/27/21 08/27/21 Range/Units 11:06 15:59 20:52 Chloride (98-107) mmol/L Carbon Dioxide (22-30) mmol/L BUN (7-17) mg/dL Glucose (74-99) mg/dL POC Glucose (mg/dL) 126 H 200 H 319 H (75-99) mg/dL Calcium (8.4-10.2) mg/dL 08/28/21 08/28/21 Range/Units 06:09 06:22 Chloride 113 H (98-107) mmol/L Carbon Dioxide 20 L (22-30) mmol/L BUN 55 H (7-17) mg/dL Glucose 201 H (74-99) mg/dL POC Glucose (mg/dL) 232 H (75-99) mg/dL Calcium 7.5 L (8.4-10.2) mg/dL Microbiology - Last 24 Hours (Table) 08/24/21 17:00 Blood Culture - Preliminary Blood No Growth after 72 hours 08/24/21 17:14 Blood Culture - Preliminary Blood No Growth after 72 hours 08/25/21 16:06 Blood Culture - Preliminary Blood No Growth after 48 hours
[2021-08-28 11:17] LABS: Glucose,Whole Blood 147 mg/dL (75-99)
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
[2021-08-28 11:44] LABS: Anisocytosis Slight; Basophils # (A) 0.1 k/uL (0-0.2); Basophils % (A) 1 %; Eosinophils # (A) 0.1 k/uL (0-0.7); Eosinophils % (A) 1 %; HCT 28.5 % (34.0-46.0); HGB 8.9 gm/dL (11.4-16.0); Hypochromasia Moderate; Lymphocytes # (A) 0.9 k/uL (1.0-4.8); Lymphocytes % (A) 9 %; MCH 28.8 pg (25.0-35.0); MCHC 31.2 g/dL (31.0-37.0); MCV 92.3 fL (80.0-100.0); Mean Platelet Volume 8.7; Monocytes # (A) 0.6 k/uL (0-1.0); Monocytes % (A) 6 %; Neutrophils # (A) 7.9 k/uL (1.3-7.7); Neutrophils % (A) 81 %; Platelet Count 307 k/uL (150-450); RBC 3.09 m/uL (3.80-5.40); RDW 16.8 % (11.5-15.5); WBC 9.7 k/uL (3.8-10.6)
[2021-08-28] MEDS ORDERED: POTASSIUM CHLORIDE ER 20 MEQ TAB.ER PO SCH (12:00)
[2021-08-28] MEDS: NOREPINEPHRINE 4 MG in SODIUM CHLORIDE 0.9% 250 ML IV SCH ×2 (12:01→23:48)
[2021-08-28] MEDS: SODIUM CHLORIDE 0.9% 1,000 ML IV SCH (12:08)
--- NOTE | 2021-08-28 12:43 | P.PN ---
Subjective Patient is seen for follow-up for acute kidney injury. Renal function has been improving Currently off of levo fed Urine output drops likely to about 20 mL an hour but it has picked up for the last couple of hours. Serum creatinine down to 0.9 mg/dL. Patient is going for debridement today Objective - Vital Signs Vital signs: Vital Signs Temp 97.6 F 08/28/21 08:00 Pulse 105 H 08/28/21 12:00 Resp 22 08/28/21 12:00 BP 105/57 08/28/21 12:00 Pulse Ox 99 08/28/21 12:00 FiO2 Intake & Output 08/27/21 08/28/21 08/28/21 18:59 06:59 18:59 Intake Total 3735.497 9768.775 586.78 Output Total 615 513 120 Balance 776.681 876.775 466.78 Weight 98.6 kg Intake: IV 900 1035 580 0.9 NACl- 900 900 450 Ampicillin-Sulbactam 3 gm 100 In Sodium Chloride 0.9% 100 ml @ 200 mls/hr IVPB Q8H [facility] Rx#:[id number] Cardizem 35 30 Unasyn 3gm 100 Intake, IV Titration 241.681 54.775 6.78 Amount Diltiazem 125 mg In 0 Sodium Chloride 0.9% 100 ml @ 5 MG/HR 5 mls/hr IV .Q24H NUS[facility]AT Rx#:[id number] Norepinephrine 4 mg In 241.681 54.775 6.78 Sodium Chloride 0.9% 250 ml @ 0.05 MCG/KG/MIN 19. 01 mls/hr IV .[id number] NUSRAT Rx#:[id number] Oral 250 300 Output: Urine 615 513 120 Other: Voiding Method Indwelling Catheter Indwelling Catheter Indwelling Catheter - Exam Awake, comfortable, not in any acute distress Examination of the heart S1 and S2 Examination of lungs bilateral breath sounds are heard Abdomen is soft morbidly obese Examination of lower ex Mittie shows chronic skin changes significant edema left lower extremity. Right AKA - Labs CBC & Chem 7: 08/28/21 10:09 08/28/21 06:22 Labs: Abnormal Lab Results - Last 24 Hours (Table) 08/27/21 08/27/21 08/28/21 Range/Units 15:59 20:52 06:09 RBC (3.80-5.40) m/uL Hgb (11.4-16.0) gm/dL Hct (34.0-46.0) % RDW (11.5-15.5) % Neutrophils # (1.3-7.7) k/uL Lymphocytes # (1.0-4.8) k/uL Chloride (98-107) mmol/L Carbon Dioxide (22-30) mmol/L BUN (7-17) mg/dL Glucose (74-99) mg/dL POC Glucose (mg/dL) 200 H 319 H 232 H (75-99) mg/dL Calcium (8.4-10.2) mg/dL 08/28/21 08/28/21 08/28/21 Range/Units 06:22 10:09 11:15 RBC 3.09 L (3.80-5.40) m/uL Hgb 8.9 L (11.4-16.0) gm/dL Hct 28.5 L (34.0-46.0) % RDW 16.8 H (11.5-15.5) % Neutrophils # 7.9 H (1.3-7.7) k/uL Lymphocytes # 0.9 L (1.0-4.8) k/uL Chloride 113 H (98-107) mmol/L Carbon Dioxide 20 L (22-30) mmol/L BUN 55 H (7-17) mg/dL Glucose 201 H (74-99) mg/dL POC Glucose (mg/dL) 147 H (75-99) mg/dL Calcium 7.5 L (8.4-10.2) mg/dL Microbiology - Last 24 Hours (Table) 08/24/21 17:00 Blood Culture - Preliminary Blood No Growth after 72 hours 08/24/21 17:14 Blood Culture - Preliminary Blood No Growth after 72 hours 08/25/21 16:06 Blood Culture - Preliminary Blood No Growth after 48 hours Assessment and Plan Assessment: 1. Acute kidney injury secondary to septic shock and ATN. Currently improving UA showed trace protein. No evidence of obstruction on ultrasound 2. Sacral decubitus ulcer scheduled for debridement today 3. A. fib with RVR maintained on Cardizem drip 4. Metabolic acidosis associated with acute kidney injury and lactic acidosis currently improved Plan: Continue with saline Repeat labs in a.m.
[2021-08-28] MEDS ORDERED: LIDOCAINE 1% INJ 10MG/ML (30 ML VIAL-PF) SQ ONE (14:15)
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
--- NOTE | 2021-08-28 14:42 | IR ---
EXAMINATION TYPE: IR cvc insert >=5 years DATE OF EXAM: 08/28/2021 COMPARISON: NONE CLINICAL HISTORY: Infection Needs long-term intravenous access for antibiotics. PROCEDURE: Hand hygiene obtained with soap and water and alcohol-based hand rub. After informed consent, the skin overlying the left cephalic vein was localized with ultrasound and n oted to be compressible and patent. An ultrasound image was obtained and submitted on the patient's chart. The overlying skin was prepped and draped and Lidocaine was used for local anesthesia. A ski n ramos was made with a scalpel. Access was gained to the vein under ultrasound guidance with a 21 ga uge needle and a 0.018 inch wire was advanced but could not be advanced centrally. Attention was the n directed to the left basilic vein. Using similar technique access was gained to the vein. Access si te was dilated with Peel-Away sheath and catheter tailored to the appropriate length and advanced suc h that the distal tip is near the cavoatrial junction. Post procedure chest x-ray was obtained verify ing placement the tip overlying superior vena cava. Catheter was fixed to the skin and a sterile chapo ssing was placed following hemostasis. Catheter was aspirated and flushed with saline. Patient was discharged in stable condition without complication.Maximal barrier technique is utilized. Ultrasoun d image is documented on the chart. Ultrasound used with sterile technique. IMPRESSION: STATUS POST ULTRASOUND GUIDED PICC LINE PLACEMENT, READY FOR USE. THIS PROCEDURE WAS PER FORMED BY THE UNDERSIGNED.
[2021-08-28] MEDS ORDERED: VANCOMYCIN TROUGH DUE 1 EACH MISC MISCELLANE ONE (15:00)
[2021-08-28] MEDS ORDERED: HEPARIN SODIUM 1,000 UN/ML (10ML VL) IV ONE (15:07)
[2021-08-28] MEDS ORDERED: HEPARIN SODIUM 1,000 UN/ML (10ML VL) IV PRN (15:07)
--- NOTE | 2021-08-28 15:43 | XR ---
EXAMINATION TYPE: XR chest 1V confirm line [facility] DATE OF EXAM: 08/28/2021 HISTORY: Shortness of breath. COMPARISON: 08/25/2021 TECHNIQUE: Single view of the chest is submitted. FINDINGS: Demonstrated are scattered senescent parenchymal change. Left-sided PICC line with distal tip overlyi ng the SVC. No evidence for pneumothorax. There is no evidence for focal infiltrate. The heart is stable. Hilar and mediastinal structures are within normal limits. Degenerative changes are seen of the dorsal spine. IMPRESSION: 1. Chronic changes without evidence for acute pulmonary disease.
[2021-08-28] MEDS: HEPARIN SOD,PORK IN 0.45% NACL 25,000 UNIT in 0.45% NACL 1 250ML.BAG IV SCH (16:13)
[2021-08-28] MEDS: VANCOMYCIN 1,750 MG in SODIUM CHLORIDE 0.9% 500 ML 500 ML IVPB SCH (16:15)
[2021-08-28] MEDS: DILTIAZEM 125 MG in SODIUM CHLORIDE 0.9% 100 ML IV SCH (16:18)
[2021-08-28 17:18] LABS: Glucose,Whole Blood 150 mg/dL (75-99)
[2021-08-28] MEDS: MIDODRINE 5 MG TAB PO SCH (17:51)
[2021-08-28 20:11] LABS: Glucose,Whole Blood 175 mg/dL (75-99)
[2021-08-28 20:53] LABS: INR 1.1 (<1.2); Partial Thromboplastin Time 62.4 sec (22.0-30.0); Prothrombin Time 11.6 sec (9.0-12.0)
[2021-08-28] MEDS: INSULIN DETEMIR (LEVEMIR) 100 UNIT/ML SYR SQ SCH (20:58)
[2021-08-29] MEDS: AMPICILLIN-SULBACTAM 3 GM in SODIUM CHLORIDE 0.9% 100 ML IVPB SCH ×3 (04:18→20:41)
[2021-08-29] MEDS: SODIUM CHLORIDE 0.9% 1,000 ML IV SCH ×2 (04:18→20:43)
[2021-08-29] MEDS: HYDROmorphone 0.5 MG/0.5 ML SYRINGE IVP PRN (05:41)
[2021-08-29 06:44] LABS: Glucose,Whole Blood 101 mg/dL (75-99)
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
[2021-08-29] MEDS: INSULIN ASPART (NovoLOG) 100 UNIT/ML VIAL SQ SCH ×4 (07:11→20:42)
[2021-08-29] MEDS: MIDODRINE 5 MG TAB PO SCH ×2 (07:23→18:31)
[2021-08-29 08:26] LABS: INR 1.1 (<1.2); Partial Thromboplastin Time 26.8 sec (22.0-30.0); Prothrombin Time 11.3 sec (9.0-12.0)
[2021-08-29 08:32] LABS: Calcium 7.4 mg/dL (8.4-10.2)
[2021-08-29 08:37] LABS: Anisocytosis Slight; HCT 28.2 % (34.0-46.0); HGB 8.5 gm/dL (11.4-16.0); Hypochromasia Marked; MCH 29.3 pg (25.0-35.0); MCHC 30.2 g/dL (31.0-37.0); MCV 96.9 fL (80.0-100.0); Macrocytosis Slight; Mean Platelet Volume 8.6; Platelet Count 270 k/uL (150-450); RBC 2.91 m/uL (3.80-5.40); RDW 16.8 % (11.5-15.5); WBC 10.8 k/uL (3.8-10.6)
--- NOTE | 2021-08-29 08:50 | P.PN ---
Subjective Patient remains in atrial fibrillation with controlled ventricular rate. She is free of cardiac symptoms. Awaiting debridement. She is on IV heparin. I will switch her to oral agents once the surgery is done . On exam comfortable at rest heart rate is 100 bpm blood pressure is 1060 76 respirators 18 O2 sat is 97% there is no jugular venous distention chest exam reveals good air entry bilaterally heart exam vessel second heart sounds no gall op exam extremities right leg edema chronic wound Labs show a hemoglobin of 8.5. Count is 270 potassium is 4 creatinine is 0.85 Assessment and plan: Persistent atrial fibrillation Continue current medications Objective - Vital Signs Vital signs: Vital Signs Temp 97.6 F 08/29/21 08:00 Pulse 107 H 08/29/21 08:00 Resp 18 08/29/21 08:00 BP 106/76 08/29/21 08:00 Pulse Ox 97 08/29/21 08:00 FiO2 Intake & Output 08/28/21 08/29/21 08/29/21 18:59 06:59 18:59 Intake Total 1500.363 985 160 Output Total 490 375 65 Balance 1010.363 610 95 Weight 98.4 kg Intake: IV 1410 985 160 0.9 NACl- 750 Ampicillin-Sulbactam 3 gm 100 100 In Sodium Chloride 0.9% 100 ml @ 200 mls/hr IVPB Q8H [facility] Rx#:[id number] Cardizem 60 60 10 Sodium Chloride 0.9% 1, 825 150 000 ml @ 75 mls/hr IV . [id number] [facility] Rx#:[id number] Vancomycin 1,750 mg In 500 Sodium Chloride 0.9% 500 ml 500 ml @ 167 mls/hr IVPB Q24HR@1600 [facility] Rx#: [id number] Intake, IV Titration 90.363 Amount Diltiazem 125 mg In 83.583 Sodium Chloride 0.9% 100 ml @ 5 MG/HR 5 mls/hr IV .Q24H [facility] Rx#:[id number] Norepinephrine 4 mg In 6.78 Sodium Chloride 0.9% 250 ml @ 0.05 MCG/KG/MIN 19. 01 mls/hr IV .[id number] [facility] Rx#:[id number] Output: Urine 490 375 65 Other: Voiding Method Indwelling Catheter Indwelling Catheter Indwelling Catheter # Bowel Movements 1 - Labs CBC & Chem 7: 08/29/21 07:59 06/14/22 07:59 Labs: Abnormal Lab Results - Last 24 Hours (Table) 08/28/21 08/28/21 08/28/21 Range/Units 10:09 11:15 17:16 WBC (3.8-10.6) k/uL RBC 3.09 L (3.80-5.40) m/uL Hgb 8.9 L (11.4-16.0) gm/dL Hct 28.5 L (34.0-46.0) % MCHC (31.0-37.0) g/dL RDW 16.8 H (11.5-15.5) % Neutrophils # 7.9 H (1.3-7.7) k/uL Lymphocytes # 0.9 L (1.0-4.8) k/uL APTT (22.0-30.0) sec Chloride (98-107) mmol/L Carbon Dioxide (22-30) mmol/L BUN (7-17) mg/dL POC Glucose (mg/dL) 147 H 150 H (75-99) mg/dL Calcium (8.4-10.2) mg/dL 08/28/21 08/28/21 08/29/21 Range/Units 20:09 20:27 06:42 WBC (3.8-10.6) k/uL RBC (3.80-5.40) m/uL Hgb (11.4-16.0) gm/dL Hct (34.0-46.0) % MCHC (31.0-37.0) g/dL RDW (11.5-15.5) % Neutrophils # (1.3-7.7) k/uL Lymphocytes # (1.0-4.8) k/uL APTT 62.4 H (22.0-30.0) sec Chloride (98-107) mmol/L Carbon Dioxide (22-30) mmol/L BUN (7-17) mg/dL POC Glucose (mg/dL) 175 H 101 H (75-99) mg/dL Calcium (8.4-10.2) mg/dL 08/29/21 08/29/21 Range/Units 07:59 07:59 WBC 10.8 H (3.8-10.6) k/uL RBC 2.91 L (3.80-5.40) m/uL Hgb 8.5 L (11.4-16.0) gm/dL Hct 28.2 L (34.0-46.0) % MCHC 30.2 L (31.0-37.0) g/dL RDW 16.8 H (11.5-15.5) % Neutrophils # (1.3-7.7) k/uL Lymphocytes # (1.0-4.8) k/uL APTT (22.0-30.0) sec Chloride 117 H (98-107) mmol/L Carbon Dioxide 18 L (22-30) mmol/L BUN 45 H (7-17) mg/dL POC Glucose (mg/dL) (75-99) mg/dL Calcium 7.4 L (8.4-10.2) mg/dL Microbiology - Last 24 Hours (Table) 08/24/21 17:14 Blood Culture - Preliminary Blood No Growth after 96 hours 08/24/21 17:00 Blood Culture - Preliminary Blood No Growth after 96 hours 08/25/21 16:06 Blood Culture - Preliminary Blood No Growth after 72 hours
[2021-08-29 08:54] LABS: Band Neutrophils % 3 %; Eosinophils # (M) 0.22 k/uL (0-0.7); Lymphocytes # (M) 0.86 k/uL (1.0-4.8); Metamyelocytes # (M) 0.22 k/uL (0); Metamyelocytes % 2 %; Monocytes # (M) 0.65 k/uL (0-1.0); Myelocytes # (M) 0.11 k/uL (0); Myelocytes % 1 %; Neutrophils % (M) 81 %; Nucleated Red Blood Cells 0 /100 WBC (0-0); Total Cells Counted 200
[2021-08-29] MEDS: METOPROLOL TARTRATE 50 MG TAB PO SCH ×3 (09:20→20:42)
[2021-08-29] MEDS: PANTOPRAZOLE 40 MG/10 ML VIAL IV SCH (09:20)
[2021-08-29] MEDS: ATORVASTATIN 40 MG TAB PO SCH (09:20)
--- NOTE | 2021-08-29 10:36 | P.PN ---
Subjective Patient is seen for follow-up for acute kidney injury. Renal function has been improving Currently off of levo fed Urine output drops likely to about 20 mL an hour but it has picked up for the last couple of hours. Serum creatinine down to 0.9 mg/dL. Patient is going for debridement of sacral decub today Objective - Vital Signs Vital signs: Vital Signs Temp 97.6 F 08/29/21 08:00 Pulse 107 H 08/29/21 08:00 Resp 18 08/29/21 08:00 BP 106/76 08/29/21 08:00 Pulse Ox 97 08/29/21 08:00 FiO2 Intake & Output 08/28/21 08/29/21 08/29/21 18:59 06:59 18:59 Intake Total 1500.363 985 160 Output Total 490 375 65 Balance 1010.363 610 95 Weight 98.4 kg Intake: IV 1410 985 160 0.9 NACl- 750 Ampicillin-Sulbactam 3 gm 100 100 In Sodium Chloride 0.9% 100 ml @ 200 mls/hr IVPB Q8H [facility] Rx#:[id number] Cardizem 60 60 10 Sodium Chloride 0.9% 1, 825 150 000 ml @ 75 mls/hr IV . [id number] [facility] Rx#:[id number] Vancomycin 1,750 mg In 500 Sodium Chloride 0.9% 500 ml 500 ml @ 167 mls/hr IVPB Q24HR@1600 [facility] Rx#: [id number] Intake, IV Titration 90.363 Amount Diltiazem 125 mg In 83.583 Sodium Chloride 0.9% 100 ml @ 5 MG/HR 5 mls/hr IV .Q24H [facility] Rx#:[id number] Norepinephrine 4 mg In 6.78 Sodium Chloride 0.9% 250 ml @ 0.05 MCG/KG/MIN 19. 01 mls/hr IV .[id number] [facility] Rx#:[id number] Output: Urine 490 375 65 Other: Voiding Method Indwelling Catheter Indwelling Catheter Indwelling Catheter # Bowel Movements 1 - Exam Awake, comfortable, not in any acute distress Examination of the heart S1 and S2 Examination of lungs bilateral breath sounds are heard Abdomen is soft morbidly obese Examination of lower extremities shows chronic skin changes significant edema left lower extremity. Right AKA - Labs CBC & Chem 7: 08/29/21 07:59 08/29/21 07:59 Labs: Abnormal Lab Results - Last 24 Hours (Table) 08/28/21 08/28/21 08/28/21 Range/Units 10:09 11:15 17:16 WBC (3.8-10.6) k/uL RBC 3.09 L (3.80-5.40) m/uL Hgb 8.9 L (11.4-16.0) gm/dL Hct 28.5 L (34.0-46.0) % MCHC (31.0-37.0) g/dL RDW 16.8 H (11.5-15.5) % Neutrophils # 7.9 H (1.3-7.7) k/uL Neutrophils # (Manual) (1.3-7.7) k/uL Lymphocytes # 0.9 L (1.0-4.8) k/uL Lymphocytes # (Manual) (1.0-4.8) k/uL Metamyelocytes # (Man) (0) k/uL Myelocytes # (Manual) (0) k/uL APTT (22.0-30.0) sec Chloride (98-107) mmol/L Carbon Dioxide (22-30) mmol/L BUN (7-17) mg/dL POC Glucose (mg/dL) 147 H 150 H (75-99) mg/dL Calcium (8.4-10.2) mg/dL 08/28/21 08/28/21 08/29/21 Range/Units 20:09 20:27 06:42 WBC (3.8-10.6) k/uL RBC (3.80-5.40) m/uL Hgb (11.4-16.0) gm/dL Hct (34.0-46.0) % MCHC (31.0-37.0) g/dL RDW (11.5-15.5) % Neutrophils # (1.3-7.7) k/uL Neutrophils # (Manual) (1.3-7.7) k/uL Lymphocytes # (1.0-4.8) k/uL Lymphocytes # (Manual) (1.0-4.8) k/uL Metamyelocytes # (Man) (0) k/uL Myelocytes # (Manual) (0) k/uL APTT 62.4 H (22.0-30.0) sec Chloride (98-107) mmol/L Carbon Dioxide (22-30) mmol/L BUN (7-17) mg/dL POC Glucose (mg/dL) 175 H 101 H (75-99) mg/dL Calcium (8.4-10.2) mg/dL 08/29/21 08/29/21 Range/Units 07:59 07:59 WBC 10.8 H (3.8-10.6) k/uL RBC 2.91 L (3.80-5.40) m/uL Hgb 8.5 L (11.4-16.0) gm/dL Hct 28.2 L (34.0-46.0) % MCHC 30.2 L (31.0-37.0) g/dL RDW 16.8 H (11.5-15.5) % Neutrophils # (1.3-7.7) k/uL Neutrophils # (Manual) 9.00 H (1.3-7.7) k/uL Lymphocytes # (1.0-4.8) k/uL Lymphocytes # (Manual) 0.86 L (1.0-4.8) k/uL Metamyelocytes # (Man) 0.22 H (0) k/uL Myelocytes # (Manual) 0.11 H (0) k/uL APTT (22.0-30.0) sec Chloride 117 H (98-107) mmol/L Carbon Dioxide 18 L (22-30) mmol/L BUN 45 H (7-17) mg/dL POC Glucose (mg/dL) (75-99) mg/dL Calcium 7.4 L (8.4-10.2) mg/dL Microbiology - Last 24 Hours (Table) 08/24/21 17:14 Blood Culture - Preliminary Blood No Growth after 96 hours 08/24/21 17:00 Blood Culture - Preliminary Blood No Growth after 96 hours 08/25/21 16:06 Blood Culture - Preliminary Blood No Growth after 72 hours Assessment and Plan Assessment: 1. Acute kidney injury secondary to septic shock and ATN. Currently improving UA showed trace protein. No evidence of obstruction on ultrasound 2. Sacral decubitus ulcer scheduled for debridement today 3. A. fib with RVR maintained on Cardizem drip 4. Metabolic acidosis associated with acute kidney injury and lactic acidosis currently improved
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
[2021-08-29 11:40] LABS: Glucose,Whole Blood 83 mg/dL (75-99)
[2021-08-29] MEDS: NOREPINEPHRINE 4 MG in SODIUM CHLORIDE 0.9% 250 ML IV SCH (11:54)
[2021-08-29] MEDS ORDERED: SUCCINYLCHOLINE CHLORIDE 100 MG/5 ML SYR IV ONE (12:30)
[2021-08-29] MEDS ORDERED: ROCURONIUM 10 MG/ML (5 ML VIAL) IV ONE (12:30)
[2021-08-29] MEDS ORDERED: ETOMIDATE 2 MG/ML 10 ML VIAL ONE (12:30)
[2021-08-29] MEDS ORDERED: GLYCOPYRROLATE 0.2 MG/ML 2 ML VIAL ONE (12:30)
[2021-08-29] MEDS ORDERED: fentaNYL (PF) 50 MCG/ML 2 ML AMP ONE (12:30)
[2021-08-29] MEDS ORDERED: PHENYLEPHRINE-0.9% NACL SYG 1,000 MCG/10 ML SYRINGE ONE (12:30)
[2021-08-29] MEDS ORDERED: NEOSTIGMINE 1 MG/ML 10 ML VIAL ONE (12:30)
[2021-08-29] MEDS ORDERED: SODIUM CHLORIDE 0.9% 1,000 ML IV ONE (12:41)
--- NOTE | 2021-08-29 13:43 | P.OP ---
Date of Procedure: 08/29/21 Preoperative Diagnosis: Sacral decubitus ulcer Postoperative Diagnosis: Sacral decubitus ulcer with necrotic skin and fat muscle on the right side Procedure(s) Performed: Debridement of sacral decubitus ulcer Anesthesia: GILDA Surgeon: Tra Parker Estimated Blood Loss (ml): 25 Pathology: other (Necrotic skin and fat muscle) Condition: stable Disposition: ICU Description of Procedure: The patient's placed on the operative table in the prone position after she was general endotracheal C. Her sacrum was prepped and draped usual fashion. Patient had bilateral pressure sacral decubitus ulcers. The left side was sharply debrided using left cautery and cut mode. The right ulcer measuring present 10 x 15 x 4 cm. There was full-thickness dermal necrosis and some subcutaneous fat necrosis. He was is achieved with cautery. The the right side was then debrided. The ulcer measures roughly 20 x 15 x 5 cm. This was sharply incised and using left cautery the necrotic tissue was removed. There were several pockets of pus in the subcutaneous tissue. There was some necrotic muscle. We will sharply debrided. He was achieved with cautery. The wound was then packed with wet-to-dry Kerlix. Patient top she will sent to ICU in stable condition.
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
[2021-08-29 16:34] LABS: Glucose,Whole Blood 82 mg/dL (75-99)
[2021-08-29] MEDS: HEPARIN SOD,PORK IN 0.45% NACL 25,000 UNIT in 0.45% NACL 1 250ML.BAG IV SCH (16:44)
[2021-08-29] MEDS: VANCOMYCIN 1,750 MG in SODIUM CHLORIDE 0.9% 500 ML 500 ML IVPB SCH (16:45)
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
[2021-08-29 20:19] LABS: Glucose,Whole Blood 163 mg/dL (75-99)
[2021-08-29] MEDS: INSULIN DETEMIR (LEVEMIR) 100 UNIT/ML SYR SQ SCH (20:42)
[2021-08-30] MEDS: AMPICILLIN-SULBACTAM 3 GM in SODIUM CHLORIDE 0.9% 100 ML IVPB SCH ×4 (03:18→21:07)
[2021-08-30] MEDS: NOREPINEPHRINE 4 MG in SODIUM CHLORIDE 0.9% 250 ML IV SCH ×2 (05:09→17:41)
[2021-08-30 06:54] LABS: Glucose,Whole Blood 91 mg/dL (75-99)
[2021-08-30] MEDS: INSULIN ASPART (NovoLOG) 100 UNIT/ML VIAL SQ SCH ×4 (06:55→20:55)
[2021-08-30 07:52] LABS: Calcium 7.8 mg/dL (8.4-10.2)
[2021-08-30 07:53] LABS: Potassium 5.1 mmol/L (3.5-5.1)
[2021-08-30] MEDS: MIDODRINE 5 MG TAB PO SCH ×2 (08:57→17:41)
[2021-08-30] MEDS ORDERED: COLLAGENASE 250 UNIT/GM OINTMENT 30 GM TUBE TOPICAL SCH (09:00)
[2021-08-30] MEDS: HYDROmorphone 0.5 MG/0.5 ML SYRINGE IVP PRN (09:04)
[2021-08-30] MEDS: METOPROLOL TARTRATE 50 MG TAB PO SCH (09:07)
[2021-08-30] MEDS: ATORVASTATIN 40 MG TAB PO SCH (09:07)
[2021-08-30] MEDS: PANTOPRAZOLE 40 MG/10 ML VIAL IV SCH (09:09)
--- NOTE | 2021-08-30 09:28 | P.PN ---
Subjective Patient is seen for follow-up for acute kidney injury. Renal function has been improving Currently off of levo fed Urine output at 30-40 mL an hour Serum creatinine down to 0.8 mg/dL. Patient is status post debridement of sacral decubitus ulcer yesterday. Objective - Vital Signs Vital signs: Vital Signs Temp 97.7 F 08/30/21 09:00 Pulse 110 H 08/30/21 09:00 Resp 18 08/30/21 09:00 BP 129/102 08/30/21 09:00 Pulse Ox 100 08/30/21 09:00 FiO2 Intake & Output 08/29/21 08/30/21 08/30/21 18:59 06:59 18:59 Intake Total 1110 1465 160 Output Total 385 370 80 Balance 725 1095 80 Weight 100.9 kg Intake: IV 1110 1065 160 Ampicillin-Sulbactam 3 gm 100 In Sodium Chloride 0.9% 100 ml @ 200 mls/hr IVPB Q8H [facility] Rx#:[id number] Cardizem 60 65 10 Sodium Chloride 0.9% 1, 750 900 150 000 ml @ 75 mls/hr IV . [id number] [facility] Rx#:[id number] Oral 400 Output: Urine 355 370 80 Estimated Blood Loss 30 Other: Voiding Method Indwelling Catheter Indwelling Catheter # Bowel Movements 1 - Exam Awake, comfortable, not in any acute distress Examination of the heart S1 and S2 Examination of lungs bilateral breath sounds are heard Abdomen is soft morbidly obese Examination of lower extremities shows chronic skin changes significant edema left lower extremity. Right AKA - Labs CBC & Chem 7: 08/29/21 07:59 08/30/21 06:11 Labs: Abnormal Lab Results - Last 24 Hours (Table) 08/29/21 08/30/21 Range/Units 20:17 06:11 Chloride 118 H (98-107) mmol/L Carbon Dioxide 16 L (22-30) mmol/L BUN 40 H (7-17) mg/dL Glucose 70 L (74-99) mg/dL POC Glucose (mg/dL) 163 H (75-99) mg/dL Calcium 7.8 L (8.4-10.2) mg/dL Microbiology - Last 24 Hours (Table) 08/24/21 17:14 Blood Culture - Preliminary Blood No Growth after 120 hours 08/24/21 17:00 Blood Culture - Preliminary Blood No Growth after 120 hours 08/25/21 16:06 Blood Culture - Preliminary Blood No Growth after 96 hours Assessment and Plan Assessment: 1. Acute kidney injury secondary to septic shock and ATN. Currently improving UA showed trace protein. No evidence of obstruction on ultrasound 2. Sacral decubitus ulcer, status post debridement 3. A. fib with RVR maintained on Cardizem drip 4. Metabolic acidosis associated with acute kidney injury and lactic acidosis and IV fluids. Change to Ringer lactate and add oral sodium bicarb Plan: Continue with IV fluids. Change to Ringer lactate given the acidosis Decrease rate Add oral sodium bicarb Repeat labs in a.m.
[2021-08-30] MEDS: SODIUM CHLORIDE 0.9% 1,000 ML IV SCH (10:09)
[2021-08-30] MEDS: LACTATED RINGERS 1,000 ML IV SCH ×2 (10:16→22:35)
[2021-08-30] MEDS: SODIUM BICARBONATE TAB 650 MG TAB PO SCH (11:14)
[2021-08-30 11:33] LABS: Glucose,Whole Blood 159 mg/dL (75-99)
--- NOTE | 2021-08-30 12:23 | PN ---
PROGRESS NOTE Susanne is a 75-year-old lady with persistent atrial fibrillation who underwent debridement. Remains in atrial fibrillation with poorly controlled ventricular rate. She is on intravenous Cardizem, beta blockers, and Lipitor. I am going to start her on Eliquis 5 b.i.d. today and increase the dose of Lopressor and stop the Cardizem. EXAM: Comfortable at rest. Heart rate is around 110 beats per minute. Blood pressure is 110/69, respiratory is 20. Chest exam reveals good air entry bilaterally. Heart exam reveals first and second heart sounds, irregular rhythm and a systolic murmur at the apex. Abdomen is soft. Labs show potassium is 5.1, BUN 40, creatinine is 0.8. Hemoglobin was 8.5. ASSESSMENT: Persistent atrial fibrillation with poorly controlled ventricular rate. PLAN: I will increase the dose of beta blockers, start the patient on Eliquis. MMODL / IJN: [id number] /
[2021-08-30] MEDS: APIXABAN 5 MG TAB PO SCH ×2 (12:27→20:56)
--- NOTE | 2021-08-30 12:32 | P.PN ---
Subjective Progress Note Date: 08/30/21 CHIEF COMPLAINT: Sacral decubitus ulcer HISTORY OF PRESENT ILLNESS: Patient is status post debridement of sacral decubitus ulcer. Postop day #1. She's in the ICU overflow. Patient reporting pain in her leg stump. No pain in the sacral area. She is currently off of the IV heparin. She is tolerating a heart healthy diet. Afebrile. Per nursing staff minimal drainage at the distal aspect of the dressing. Afebrile. Mild tachycardia. WBC 10.8 from yesterday sodium is 145 potassium is 5.1 creatinine 0.7 PHYSICAL EXAM: VITAL SIGNS: Reviewed. GENERAL: Well-developed in no acute distress. HEENT: No sclera icterus. Extraocular movements grossly intact. Moist buccal mucosa. Head is atraumatic, normocephalic. ABDOMEN: Soft. Nondistended. Nontender. NEUROLOGIC: Sleeping comfortably Buttocks: Dressing of the sacral decubitus ulcer intact with minimal drainage at the distal aspect per nursing staff. ASSESSMENT: 1. Sacral decubitus ulcer with necrotic skin and fat muscle on the right side status post debridement of sacral decubitus ulcer PLAN: -Continue local wound care -Continue antibiotics -Continue supportive care -Okay to resume IV heparin from surgical standpoint Physician [employer] note has been reviewed by physician. Signing provider agrees with the documented findings, assessment, and plan of care. Objective - Vital Signs Vital signs: Vital Signs Temp 97.7 F 08/30/21 09:00 Pulse 115 H 08/30/21 11:00 Resp 28 H 08/30/21 11:00 BP 109/67 08/30/21 11:00 Pulse Ox 98 08/30/21 10:00 FiO2 Intake & Output 08/29/21 08/30/21 08/30/21 18:59 06:59 18:59 Intake Total 1110 1465 420 Output Total 385 370 130 Balance 725 1095 290 Weight 100.9 kg 100.9 kg Intake: IV 1110 1065 270 Ampicillin-Sulbactam 3 gm 100 100 In Sodium Chloride 0.9% 100 ml @ 200 mls/hr IVPB Q8H [facility] Rx#:[id number] Cardizem 60 65 20 Sodium Chloride 0.9% 1, 750 900 150 000 ml @ 75 mls/hr IV . [id number] [facility] Rx#:[id number] Intake, IV Titration 150 Amount Lactated Ringers 1,000 ml 150 @ 75 mls/hr IV .[id number] [facility] Rx#:[id number] Oral 400 Output: Urine 355 370 130 Estimated Blood Loss 30 Other: Voiding Method Indwelling Catheter Indwelling Catheter Indwelling Catheter # Bowel Movements 1 - Labs CBC & Chem 7: 08/29/21 07:59 08/30/21 06:11 Labs: Abnormal Lab Results - Last 24 Hours (Table) 08/29/21 08/30/21 08/30/21 Range/Units 20:17 06:11 11:31 Chloride 118 H (98-107) mmol/L Carbon Dioxide 16 L (22-30) mmol/L BUN 40 H (7-17) mg/dL Glucose 70 L (74-99) mg/dL POC Glucose (mg/dL) 163 H 159 H (75-99) mg/dL Calcium 7.8 L (8.4-10.2) mg/dL Microbiology - Last 24 Hours (Table) 08/24/21 17:14 Blood Culture - Preliminary Blood No Growth after 120 hours 08/24/21 17:00 Blood Culture - Preliminary Blood No Growth after 120 hours 08/25/21 16:06 Blood Culture - Preliminary Blood No Growth after 96 hours
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
[2021-08-30 16:43] LABS: Glucose,Whole Blood 207 mg/dL (70-110)
[2021-08-30] MEDS: METOPROLOL TARTRATE 25 MG TAB PO SCH ×2 (16:43→21:07)
[2021-08-30] MEDS: VANCOMYCIN 1,750 MG in SODIUM CHLORIDE 0.9% 500 ML 500 ML IVPB SCH (16:51)
[2021-08-30] MEDS: DILTIAZEM 125 MG in SODIUM CHLORIDE 0.9% 100 ML IV SCH (17:40)
[2021-08-30 20:22] LABS: Glucose,Whole Blood 216 mg/dL (70-110)
[2021-08-30 20:53] LABS: Glucose,Whole Blood 211 mg/dL (70-110)
[2021-08-30] MEDS: INSULIN DETEMIR (LEVEMIR) 100 UNIT/ML SYR SQ SCH (20:55)
[2021-08-31] MEDS: HYDROmorphone 0.5 MG/0.5 ML SYRINGE IVP PRN (02:08)
[2021-08-31] MEDS: AMPICILLIN-SULBACTAM 3 GM in SODIUM CHLORIDE 0.9% 100 ML IVPB SCH ×4 (03:46→22:50)
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
[2021-08-31 06:03] LABS: Glucose,Whole Blood 109 mg/dL (70-110)
[2021-08-31] MEDS: INSULIN ASPART (NovoLOG) 100 UNIT/ML VIAL SQ SCH ×4 (06:18→20:41)
[2021-08-31] MEDS: MIDODRINE 5 MG TAB PO SCH ×2 (06:20→15:04)
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
[2021-08-31] MEDS ORDERED: SODIUM BICARBONATE TAB 650 MG TAB PO SCH (09:00)
[2021-08-31] MEDS: NOREPINEPHRINE 4 MG in SODIUM CHLORIDE 0.9% 250 ML IV SCH ×2 (09:13→20:34)
[2021-08-31] MEDS: PANTOPRAZOLE 40 MG/10 ML VIAL IV SCH (09:22)
[2021-08-31] MEDS: SODIUM BICARBONATE TAB 650 MG TAB PO SCH (09:23)
[2021-08-31] MEDS: ATORVASTATIN 40 MG TAB PO SCH (09:23)
[2021-08-31] MEDS: METOPROLOL TARTRATE 25 MG TAB PO SCH (09:23)
[2021-08-31] MEDS: APIXABAN 5 MG TAB PO SCH ×2 (09:23→20:41)
[2021-08-31] MEDS: HYDROcodone/APAP 5-325MG 1 EACH TAB PO PRN ×2 (09:29→15:04)
[2021-08-31 09:42] LABS: Anisocytosis Slight; Basophils # (A) 0.1 k/uL (0-0.2); Basophils % (A) 1 %; Eosinophils # (A) 0.1 k/uL (0-0.7); Eosinophils % (A) 1 %; HCT 28.6 % (34.0-46.0); HGB 9.1 gm/dL (11.4-16.0); Hypochromasia Moderate; Lymphocytes # (A) 0.9 k/uL (1.0-4.8); Lymphocytes % (A) 8 %; MCH 29.1 pg (25.0-35.0); MCHC 31.8 g/dL (31.0-37.0); Mean Platelet Volume 9.3; Monocytes # (A) 0.5 k/uL (0-1.0); Monocytes % (A) 4 %; Neutrophils % (A) 84 %; Platelet Count 336 k/uL (150-450); Poikilocytosis Slight; RBC 3.12 m/uL (3.80-5.40); WBC 11.9 k/uL (3.8-10.6)
[2021-08-31 09:43] LABS: MCV 91.6 fL (80.0-100.0)
[2021-08-31 10:06] LABS: Calcium 7.5 mg/dL (8.4-10.2); Potassium 4.4 mmol/L (3.5-5.1)
--- NOTE | 2021-08-31 10:39 | P.PN ---
Subjective Progress Note Date: 08/31/21 - History of Present Illness HISTORY OF PRESENT ILLNESS: This is a 75-year-old female who presents to the hospital with complaints of a sacral decubitus ulcer that has worsened after slipping in the bathroom and falling on her buttocks. Patient has had chronic decubitus ulcers. She's had ulcers on the left leg in which she is followed by a Dr. High. Patient has had increased odor and drainage from the sacral wound. Per ER reports that there may have been maggots present as well. Patient is currently in the ICU she is requiring a small amount of Levophed. She is evidence of sepsis. Also atrophic relation with rapid ventricular response on Cardizem. She is followed by multiple consulting physicians. Sacral wound debridement was scheduled for yesterday however it was postponed. Patient is scheduled today for surgical debridement. Patient has multiple unstageable, stage IV pressure ulcers to the sacral. With significant amount of purulent drainage eschar present. Patient's past medical history significant for hyperlipidemia and hypertension. Lifelong nonsmoker. 08/31/2021: Patient has surgical debridement on 08/29. The right ulceration measures 10 x 15 x 4 cm full thickness serum necrosis with subcutaneous fat necrosis. The left ulceration measures 20 x 15 x 5 cm with full thickness dermal necrosis and subcutaneous fat necrosis. Patient did have necrotic muscle. A wet to dry Kerlix was utilized. Due to the extensive nature of the ulcerations a wound VAC would not be beneficial due to an adequate seal. We will utilize absorptive silver to the site. Review Of Systems: Constitutional: No fever, no chills, no night sweats. No weight change. No weakness, fatigue or lethargy. No daytime sleepiness. Integumentary:reports wounds, no lesions. No rash or pruritus. No unusual bruising. No change in hair or nails. Physical exam: General Appearance: Alert, cooperative, no distress, appears stated age. Skin: See HPI all other Skin color, texture, tugor normal, no rashes or lesions. Neurologic: Alert oriented x3 Assessment: 1. Unstageable pressure ulcer sacral 2. Stage IV pressure ulcer left buttocks 3. Stage IV pressure ulcer right buttocks PLAN: 1. Surgical debridement completed. Due to the location and an adequate seal a negative pressure wound VAC will not be utilized. We will use absorptive silver, saline moistened gauze, Kerlix for packing and AVD. Secure with paper tape. Turn patient every 2 hours. Avoid sitting for long periods of time. Utilize a air-filled cushion when seated. Thank you for the consultation any questions please contact the wound care center DNP note has been reviewed and discussed with Dr. Cao and the impression and plan of care has been directed as dictated. Objective - Vital Signs Vital signs: Vital Signs Temp 97.8 F 08/31/21 04:00 Pulse 114 H 08/31/21 04:00 Resp 18 08/31/21 04:00 BP 133/84 08/31/21 04:00 Pulse Ox 96 08/31/21 04:00 FiO2 Intake & Output 08/30/21 08/31/21 08/31/21 18:59 06:59 18:59 Intake Total 1565 400 Output Total 330 570 Balance 1235 -170 Weight 100.9 kg Intake: IV 915 100 Ampicillin-Sulbactam 3 gm 200 100 In Sodium Chloride 0.9% 100 ml @ 200 mls/hr IVPB Q8H [facility] Rx#:[id number] Cardizem 40 0 Sodium Chloride 0.9% 1, 675 000 ml @ 75 mls/hr IV . [id number] [facility] Rx#:[id number] Intake, IV Titration 650 300 Amount Lactated Ringers 1,000 ml 150 300 @ 75 mls/hr IV .[id number] [facility] Rx#:[id number] Vancomycin 1,750 mg In 500 Sodium Chloride 0.9% 500 ml 500 ml @ 167 mls/hr IVPB Q24HR@1600 [facility] Rx#: [id number] Output: Urine 330 570 Other: Voiding Method Indwelling Catheter Indwelling Catheter - Labs CBC & Chem 7: 08/31/21 07:58 08/31/21 07:58 Labs: Abnormal Lab Results - Last 24 Hours (Table) 08/30/21 08/30/21 08/30/21 Range/Units 11:31 16:41 20:21 WBC (3.8-10.6) k/uL RBC (3.80-5.40) m/uL Hgb (11.4-16.0) gm/dL Hct (34.0-46.0) % RDW (11.5-15.5) % Neutrophils # (1.3-7.7) k/uL Lymphocytes # (1.0-4.8) k/uL Chloride (98-107) mmol/L BUN (7-17) mg/dL POC Glucose (mg/dL) 159 H 207 H 216 H (75-99) mg/dL Calcium (8.4-10.2) mg/dL 08/30/21 08/31/21 08/31/21 Range/Units 20:52 07:58 07:58 WBC 11.9 H (3.8-10.6) k/uL RBC 3.12 L (3.80-5.40) m/uL Hgb 9.1 L (11.4-16.0) gm/dL Hct 28.6 L (34.0-46.0) % RDW 17.0 H (11.5-15.5) % Neutrophils # 10.0 H (1.3-7.7) k/uL Lymphocytes # 0.9 L (1.0-4.8) k/uL Chloride 113 H (98-107) mmol/L BUN 29 H (7-17) mg/dL POC Glucose (mg/dL) 211 H (75-99) mg/dL Calcium 7.5 L (8.4-10.2) mg/dL Microbiology - Last 24 Hours (Table) 08/24/21 17:14 Blood Culture - Final Blood No Growth after 144 hours 08/24/21 17:00 Blood Culture - Final Blood No Growth after 144 hours 08/25/21 16:06 Blood Culture - Preliminary Blood No Growth after 120 hours Assessment and Plan (1) Unstageable pressure ulcer of sacral region Current Visit: Yes Status: Acute Code(s): L89.150 - PRESSURE ULCER OF SACRAL REGION, UNSTAGEABLE SNOMED Code(s): 16710300510892806 (2) Pressure ulcer of right buttock, stage 4 Current Visit: Yes Status: Acute Code(s): L89.314 - PRESSURE ULCER OF RIGHT BUTTOCK, STAGE 4 SNOMED Code(s): 90828842666640743 (3) Pressure ulcer of left buttock, stage 4 Current Visit: Yes Status: Acute Code(s): L89.324 - PRESSURE ULCER OF LEFT BUTTOCK, STAGE 4 SNOMED Code(s): 94318611279112242
--- NOTE | 2021-08-31 11:13 | P.PN ---
Subjective Progress Note Date: 08/31/21 Patient is seen resting comfortably in bed and enjoying breakfast. She denies shortness of breath or chest pain. She continues to have generalized edema. Patient was started on Eliquis for anticoagulation. Her Cardizem drip was discontinued and she was transitioned to oral Lopressor. Her heart rate remains uncontrolled around 115, will increase Lopressor to 100 mg twice a day and start Cardizem 30 mg every 8 for rate control. She continues to remain in atrial fibrillation and has a systolic murmur at the apex Objective - Vital Signs Vital signs: Vital Signs Temp 97.8 F 08/31/21 04:00 Pulse 114 H 08/31/21 04:00 Resp 16 08/31/21 08:00 BP 101/67 08/31/21 08:00 Pulse Ox 97 08/31/21 08:00 FiO2 Intake & Output 08/30/21 08/31/21 08/31/21 18:59 06:59 18:59 Intake Total 1565 400 Output Total 330 570 Balance 1235 -170 Weight 100.9 kg Intake: IV 915 100 Ampicillin-Sulbactam 3 gm 200 100 In Sodium Chloride 0.9% 100 ml @ 200 mls/hr IVPB Q8H [facility] Rx#:[id number] Cardizem 40 0 Sodium Chloride 0.9% 1, 675 000 ml @ 75 mls/hr IV . [id number] [facility] Rx#:[id number] Intake, IV Titration 650 300 Amount Lactated Ringers 1,000 ml 150 300 @ 75 mls/hr IV .[id number] [facility] Rx#:[id number] Vancomycin 1,750 mg In 500 Sodium Chloride 0.9% 500 ml 500 ml @ 167 mls/hr IVPB Q24HR@1600 [facility] Rx#: [id number] Output: Urine 330 570 Other: Voiding Method Indwelling Catheter Indwelling Catheter Indwelling Catheter - Exam PHYSICAL EXAM: VITAL SIGNS: Reviewed. GENERAL: Well-developed in no acute distress. HEENT: Head is normocephalic. Pupils are equal, round. Sclerae anicteric. Mucous membranes of the mouth are moist. NECK: Supple. No JVD or thyromegaly RESPIRATORY: Respirations even and unlabored. Lungs diminished to auscultation bilaterally. CARDIO: irregular rate and rhythm. S1 and S2 heard. Systolic murmur at the apex EXTREMITIES: Normal range of motion. No clubbing or cyanosis. Peripheral pulses intact. Negative for bilateral lower extremity edema NEURO: Orientated to person, time, mood is appropriate - Labs CBC & Chem 7: 08/31/21 07:58 08/31/21 07:58 Labs: Abnormal Lab Results - Last 24 Hours (Table) 08/30/21 08/30/21 08/30/21 Range/Units 11:31 16:41 20:21 WBC (3.8-10.6) k/uL RBC (3.80-5.40) m/uL Hgb (11.4-16.0) gm/dL Hct (34.0-46.0) % RDW (11.5-15.5) % Neutrophils # (1.3-7.7) k/uL Lymphocytes # (1.0-4.8) k/uL Chloride (98-107) mmol/L BUN (7-17) mg/dL POC Glucose (mg/dL) 159 H 207 H 216 H (75-99) mg/dL Calcium (8.4-10.2) mg/dL 08/30/21 08/31/21 08/31/21 Range/Units 20:52 07:58 07:58 WBC 11.9 H (3.8-10.6) k/uL RBC 3.12 L (3.80-5.40) m/uL Hgb 9.1 L (11.4-16.0) gm/dL Hct 28.6 L (34.0-46.0) % RDW 17.0 H (11.5-15.5) % Neutrophils # 10.0 H (1.3-7.7) k/uL Lymphocytes # 0.9 L (1.0-4.8) k/uL Chloride 113 H (98-107) mmol/L BUN 29 H (7-17) mg/dL POC Glucose (mg/dL) 211 H (75-99) mg/dL Calcium 7.5 L (8.4-10.2) mg/dL Microbiology - Last 24 Hours (Table) 08/24/21 17:14 Blood Culture - Final Blood No Growth after 144 hours 08/24/21 17:00 Blood Culture - Final Blood No Growth after 144 hours 08/25/21 16:06 Blood Culture - Preliminary Blood No Growth after 120 hours Assessment and Plan Assessment: Persistent atrial fibrillation with poorly controlled ventricular rate Generalized edema Plan: Increase Lopressor to 100 mg twice a day Start Cardizem 30 mg every 8hr Continue with all other current cardiac medications Continue with Eliquis for anticoagulation Continue with telemetry monitoring Further recommendations based on clinical course The above impression and plan of care have been discussed and directed by the signing physician. Triny Cunha, nurse practitioner, acting as scribe for signing physician.
[2021-08-31 11:45] LABS: Glucose,Whole Blood 99 mg/dL (70-110)
[2021-08-31] MEDS ORDERED: FUROSEMIDE 10 MG/ML 4 ML VIAL IV STA (13:13)
--- NOTE | 2021-08-31 13:17 | P.PN ---
Subjective Patient is seen for follow-up for acute kidney injury. Renal function has been improving Currently off of levo fed Urine output at 30-40 mL an hour Serum creatinine down to 0.8 mg/dL. Patient is status post debridement of sacral decubitus ulcer on 08/29/2021 Mildly short of breath today. Patient has been transferred out of the ICU. Objective - Vital Signs Vital signs: Vital Signs Temp 97.8 F 08/31/21 04:00 Pulse 114 H 08/31/21 04:00 Resp 16 08/31/21 08:00 BP 101/67 08/31/21 08:00 Pulse Ox 97 08/31/21 08:00 FiO2 Intake & Output 08/30/21 08/31/21 08/31/21 18:59 06:59 18:59 Intake Total 1565 400 118 Output Total 330 570 Balance 1235 -170 118 Weight 100.9 kg Intake: IV 915 100 Ampicillin-Sulbactam 3 gm 200 100 In Sodium Chloride 0.9% 100 ml @ 200 mls/hr IVPB Q8H [facility] Rx#:[id number] Cardizem 40 0 Sodium Chloride 0.9% 1, 675 000 ml @ 75 mls/hr IV . [id number] [facility] Rx#:[id number] Intake, IV Titration 650 300 Amount Lactated Ringers 1,000 ml 150 300 @ 75 mls/hr IV .[id number] [facility] Rx#:[id number] Vancomycin 1,750 mg In 500 Sodium Chloride 0.9% 500 ml 500 ml @ 167 mls/hr IVPB Q24HR@1600 [facility] Rx#: [id number] Oral 118 Output: Urine 330 570 Other: Voiding Method Indwelling Catheter Indwelling Catheter Indwelling Catheter - Exam Awake, comfortable, not in any acute distress Examination of the heart S1 and S2 Examination of lungs bilateral breath sounds are heard Abdomen is soft morbidly obese Examination of lower extremities shows chronic skin changes significant edema left lower extremity. Right AKA - Labs CBC & Chem 7: 08/31/21 07:58 08/31/21 07:58 Labs: Abnormal Lab Results - Last 24 Hours (Table) 08/30/21 08/30/21 08/30/21 Range/Units 16:41 20:21 20:52 WBC (3.8-10.6) k/uL RBC (3.80-5.40) m/uL Hgb (11.4-16.0) gm/dL Hct (34.0-46.0) % RDW (11.5-15.5) % Neutrophils # (1.3-7.7) k/uL Lymphocytes # (1.0-4.8) k/uL Chloride (98-107) mmol/L BUN (7-17) mg/dL POC Glucose (mg/dL) 207 H 216 H 211 H (70-110) mg/dL Calcium (8.4-10.2) mg/dL 08/31/21 08/31/21 Range/Units 07:58 07:58 WBC 11.9 H (3.8-10.6) k/uL RBC 3.12 L (3.80-5.40) m/uL Hgb 9.1 L (11.4-16.0) gm/dL Hct 28.6 L (34.0-46.0) % RDW 17.0 H (11.5-15.5) % Neutrophils # 10.0 H (1.3-7.7) k/uL Lymphocytes # 0.9 L (1.0-4.8) k/uL Chloride 113 H (98-107) mmol/L BUN 29 H (7-17) mg/dL POC Glucose (mg/dL) (70-110) mg/dL Calcium 7.5 L (8.4-10.2) mg/dL Microbiology - Last 24 Hours (Table) 08/24/21 17:14 Blood Culture - Final Blood No Growth after 144 hours 08/24/21 17:00 Blood Culture - Final Blood No Growth after 144 hours 08/25/21 16:06 Blood Culture - Preliminary Blood No Growth after 120 hours Assessment and Plan Assessment: 1. Acute kidney injury secondary to septic shock and ATN. Currently improving UA showed trace protein. No evidence of obstruction on ultrasound 2. Sacral decubitus ulcer, status post debridement 3. A. fib with RVR maintained on Cardizem drip 4. Metabolic acidosis associated with acute kidney injury and lactic acidosis and IV fluids. Maintained on oral sodium bicarb and status post IV bicarb. Plan: DC IV fluids Lasix IV 1 Repeat labs in a.m.
--- NOTE | 2021-08-31 13:36 | P.PN ---
Subjective Progress Note Date: 08/31/21 CHIEF COMPLAINT: Sacral decubitus ulcer HISTORY OF PRESENT ILLNESS: Patient is status post debridement of sacral decubitus ulcer. Postop day #2. Patient is currently on a regular medical floor. She denies any buttocks pain. She is complaining of hip pain. She has been tachycardic. She has been in atrial fibrillation. Cardiology following. She is on Eliquis. Afebrile WBC is 11.9 Hgb 9.1 platelets 336 sodium is 139 potassium 4.4 creatinine 0.6. Patient seen and examined with Dr. bray PHYSICAL EXAM: VITAL SIGNS: Reviewed. GENERAL: Well-developed in no acute distress. HEENT: No sclera icterus. Extraocular movements grossly intact. Moist buccal mucosa. Head is atraumatic, normocephalic. ABDOMEN: Soft. Nondistended. Nontender. NEUROLOGIC: Sleeping comfortably ASSESSMENT: 1. Sacral decubitus ulcer with necrotic skin and fat muscle on the right side status post debridement of sacral decubitus ulcer PLAN: -Continue local wound care per wound care service recommendations -Continue antibiotics -Continue supportive care -Continue offloading -Dr. Bray recommends hospice Physician [employer] note has been reviewed by physician. Signing provider agrees with the documented findings, assessment, and plan of care. Objective - Vital Signs Vital signs: Vital Signs Temp 97.8 F 08/31/21 04:00 Pulse 114 H 08/31/21 04:00 Resp 16 08/31/21 08:00 BP 101/67 08/31/21 08:00 Pulse Ox 97 08/31/21 08:00 FiO2 Intake & Output 08/30/21 08/31/21 08/31/21 18:59 06:59 18:59 Intake Total 1565 400 118 Output Total 330 570 Balance 1235 -170 118 Weight 100.9 kg Intake: IV 915 100 Ampicillin-Sulbactam 3 gm 200 100 In Sodium Chloride 0.9% 100 ml @ 200 mls/hr IVPB Q8H [facility] Rx#:[id number] Cardizem 40 0 Sodium Chloride 0.9% 1, 675 000 ml @ 75 mls/hr IV . [id number] [facility] Rx#:[id number] Intake, IV Titration 650 300 Amount Lactated Ringers 1,000 ml 150 300 @ 75 mls/hr IV .[id number] [facility] Rx#:[id number] Vancomycin 1,750 mg In 500 Sodium Chloride 0.9% 500 ml 500 ml @ 167 mls/hr IVPB Q24HR@1600 [facility] Rx#: [id number] Oral 118 Output: Urine 330 570 Other: Voiding Method Indwelling Catheter Indwelling Catheter Indwelling Catheter - Labs CBC & Chem 7: 08/31/21 07:58 08/31/21 07:58 Labs: Abnormal Lab Results - Last 24 Hours (Table) 08/30/21 08/30/21 08/30/21 Range/Units 16:41 20:21 20:52 WBC (3.8-10.6) k/uL RBC (3.80-5.40) m/uL Hgb (11.4-16.0) gm/dL Hct (34.0-46.0) % RDW (11.5-15.5) % Neutrophils # (1.3-7.7) k/uL Lymphocytes # (1.0-4.8) k/uL Chloride (98-107) mmol/L BUN (7-17) mg/dL POC Glucose (mg/dL) 207 H 216 H 211 H (70-110) mg/dL Calcium (8.4-10.2) mg/dL 08/31/21 08/31/21 Range/Units 07:58 07:58 WBC 11.9 H (3.8-10.6) k/uL RBC 3.12 L (3.80-5.40) m/uL Hgb 9.1 L (11.4-16.0) gm/dL Hct 28.6 L (34.0-46.0) % RDW 17.0 H (11.5-15.5) % Neutrophils # 10.0 H (1.3-7.7) k/uL Lymphocytes # 0.9 L (1.0-4.8) k/uL Chloride 113 H (98-107) mmol/L BUN 29 H (7-17) mg/dL POC Glucose (mg/dL) (70-110) mg/dL Calcium 7.5 L (8.4-10.2) mg/dL Microbiology - Last 24 Hours (Table) 08/24/21 17:14 Blood Culture - Final Blood No Growth after 144 hours 08/24/21 17:00 Blood Culture - Final Blood No Growth after 144 hours 08/25/21 16:06 Blood Culture - Preliminary Blood No Growth after 120 hours
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
[2021-08-31] MEDS ORDERED: VANCOMYCIN TROUGH DUE 1 EACH MISC MISCELLANE ONE (15:00)
[2021-08-31] MEDS: DILTIAZEM ORAL 30 MG TAB PO SCH ×2 (15:04→22:50)
[2021-08-31] MEDS: VANCOMYCIN 1,750 MG in SODIUM CHLORIDE 0.9% 500 ML 500 ML IVPB SCH (15:04)
[2021-08-31 16:57] LABS: Glucose,Whole Blood 114 mg/dL (70-110)
[2021-08-31] MEDS ORDERED: VANCOMYCIN 1,500 MG in SODIUM CHLORIDE 0.9% 250 ML IVPB SCH (18:00)
[2021-08-31 20:28] LABS: Glucose,Whole Blood 150 mg/dL (70-110)
[2021-08-31] MEDS: METOPROLOL TARTRATE 50 MG TAB PO SCH (20:41)
[2021-08-31] MEDS: LACTATED RINGERS 1,000 ML IV SCH (20:42)
[2021-08-31] MEDS: INSULIN DETEMIR (LEVEMIR) 100 UNIT/ML SYR SQ SCH (20:42)
[2021-09-01] MEDS: AMPICILLIN-SULBACTAM 3 GM in SODIUM CHLORIDE 0.9% 100 ML IVPB SCH ×4 (04:25→23:00)
[2021-09-01 06:05] LABS: Glucose,Whole Blood 102 mg/dL (70-110)
[2021-09-01] MEDS: INSULIN ASPART (NovoLOG) 100 UNIT/ML VIAL SQ SCH ×4 (06:23→21:07)
[2021-09-01] MEDS: MIDODRINE 5 MG TAB PO SCH ×2 (06:23→17:50)
[2021-09-01] MEDS: NOREPINEPHRINE 4 MG in SODIUM CHLORIDE 0.9% 250 ML IV SCH ×2 (09:33→21:08)
[2021-09-01] MEDS: METOPROLOL TARTRATE 50 MG TAB PO SCH ×2 (09:43→21:06)
[2021-09-01] MEDS: DILTIAZEM ORAL 30 MG TAB PO SCH (09:43)
[2021-09-01] MEDS: ATORVASTATIN 40 MG TAB PO SCH (09:43)
[2021-09-01] MEDS: SODIUM BICARBONATE TAB 650 MG TAB PO SCH (09:43)
[2021-09-01] MEDS: APIXABAN 5 MG TAB PO SCH ×2 (09:43→21:06)
[2021-09-01] MEDS: PANTOPRAZOLE 40 MG/10 ML VIAL IV SCH (09:43)
--- NOTE | 2021-09-01 09:49 | P.PN ---
Subjective Patient is seen for follow-up for acute kidney injury. Renal function has been improving Currently off of pressors Urine output 1.8 L. Serum creatinine down to 0.8 mg/dL. Patient is status post debridement of sacral decubitus ulcer on 08/29/2021 Status post IV Lasix yesterday. Significant swelling in the upper extremities noted with blisters in the right hand Objective - Vital Signs Vital signs: Vital Signs Temp 98.4 F 09/01/21 04:00 Pulse 116 H 09/01/21 04:00 Resp 20 09/01/21 04:00 BP 124/81 09/01/21 06:26 Pulse Ox 98 09/01/21 04:00 FiO2 Intake & Output 08/31/21 09/01/21 09/01/21 18:59 06:59 18:59 Intake Total 421 100 Output Total 880 935 Balance -459 -835 Intake: Oral 421 100 Output: Urine 880 935 Other: Voiding Method Indwelling Catheter Indwelling Catheter - Exam Awake, comfortable, not in any acute distress Examination of the heart S1 and S2 Examination of lungs bilateral breath sounds are heard Abdomen is soft morbidly obese Examination of lower extremities shows chronic skin changes significant edema left lower extremity. Significant edema or upper extremities bilaterally with blister formation. Right AKA - Labs CBC & Chem 7: 08/31/21 07:58 08/31/21 07:58 Labs: Abnormal Lab Results - Last 24 Hours (Table) 08/31/21 08/31/21 08/31/21 Range/Units 07:58 16:41 20:27 Chloride 113 H (98-107) mmol/L BUN 29 H (7-17) mg/dL POC Glucose (mg/dL) 114 H 150 H (70-110) mg/dL Calcium 7.5 L (8.4-10.2) mg/dL Microbiology - Last 24 Hours (Table) 08/25/21 16:06 Blood Culture - Final Blood No Growth after 144 hours Assessment and Plan Assessment: 1. Acute kidney injury secondary to septic shock and ATN. Currently improved UA showed trace protein. No evidence of obstruction on ultrasound 2. Sacral decubitus ulcer, status post debridement 3. A. fib with RVR maintained on Cardizem drip 4. Metabolic acidosis associated with acute kidney injury and lactic acidosis and IV fluids. Maintained on oral sodium bicarb and status post IV bicarb. 5. Volume overload Plan: Add IV diuretics Encourage increased oral intake Repeat labs in a.m.
[2021-09-01 09:52] LABS: Calcium 7.6 mg/dL (8.4-10.2); Potassium 4.4 mmol/L (3.5-5.1)
[2021-09-01] MEDS ORDERED: FUROSEMIDE 10 MG/ML 4 ML VIAL IV SCH (10:00)
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
--- NOTE | 2021-09-01 11:33 | P.PN ---
Subjective Progress Note Date: 09/01/21 Patient is seen resting comfortably in bed doing well. She remains free of shortness of breath or chest pain. She continues to have generalized edema. her heart rate remains elavted 110-120's. Will increase Cardizem to 60 mg every 8 for rate control. She continues to remain in atrial fibrillation on Eliquis and has a systolic murmur at the apex Objective - Vital Signs Vital signs: Vital Signs Temp 98.4 F 09/01/21 04:00 Pulse 116 H 09/01/21 04:00 Resp 20 09/01/21 04:00 BP 124/81 09/01/21 06:26 Pulse Ox 98 09/01/21 04:00 FiO2 Intake & Output 08/31/21 09/01/21 09/01/21 18:59 06:59 18:59 Intake Total 421 100 Output Total 880 935 Balance -459 835 Intake: Oral 421 100 Output: Urine 880 935 Other: Voiding Method Indwelling Catheter Indwelling Catheter - Exam PHYSICAL EXAM: VITAL SIGNS: Reviewed. GENERAL: Well-developed in no acute distress. HEENT: Head is normocephalic. Pupils are equal, round. Sclerae anicteric. Mucous membranes of the mouth are moist. NECK: Supple. No JVD or thyromegaly RESPIRATORY: Respirations even and unlabored. Lungs diminished to auscultation bilaterally. CARDIO: irregular rate and rhythm. S1 and S2 heard. Systolic murmur at the apex EXTREMITIES: Normal range of motion. No clubbing or cyanosis. Peripheral pulses intact. Negative for bilateral lower extremity edema NEURO: Orientated to person, time, mood is appropriate - Labs CBC & Chem 7: 08/31/21 07:58 09/01/21 08:50 Labs: Abnormal Lab Results - Last 24 Hours (Table) 08/31/21 08/31/21 09/01/21 Range/Units 16:41 20:27 08:50 Chloride 111 H (98-107) mmol/L BUN 26 H (7-17) mg/dL Glucose 124 H (74-99) mg/dL POC Glucose (mg/dL) 114 H 150 H (70-110) mg/dL Calcium 7.6 L (8.4-10.2) mg/dL Microbiology - Last 24 Hours (Table) 08/25/21 16:06 Blood Culture - Final Blood No Growth after 144 hours Assessment and Plan Assessment: Persistent atrial fibrillation with poorly controlled ventricular rate Generalized edema Plan: Continue Lopressor to 100 mg twice a day Increase Cardizem to 60 mg every TID Continue with all other current cardiac medications Continue with Eliquis for anticoagulation Continue with telemetry monitoring Further recommendations based on clinical course The above impression and plan of care have been discussed and directed by the signing physician. Triny Cunha, nurse practitioner, acting as scribe for signing physician.
[2021-09-01 11:40] LABS: Glucose,Whole Blood 115 mg/dL (70-110)
[2021-09-01] MEDS: HYDROcodone/APAP 5-325MG 1 EACH TAB PO PRN (12:56)
--- NOTE | 2021-09-01 13:40 | P.PN ---
Subjective Progress Note Date: 09/01/21 CHIEF COMPLAINT: Sacral decubitus ulcer HISTORY OF PRESENT ILLNESS: Patient is status post debridement of sacral decubitus ulcer. Postop day #3. Patient is currently on a regular medical floor. She denies any buttocks pain. Patient sitting on the bed She is complaining of hip pain. She has been tachycardic. She has been in atrial fibrillation. Cardiology following. She is on Eliquis. Afebrile WBC is 11.9 Hgb 9.1 platelets 336 sodium is 139 potassium 4.4 creatinine 0.6. Patient seen and examined with Dr. bray PHYSICAL EXAM: VITAL SIGNS: Reviewed. GENERAL: Well-developed in no acute distress. HEENT: No sclera icterus. Extraocular movements grossly intact. Moist buccal mucosa. Head is atraumatic, normocephalic. ABDOMEN: Soft. Nondistended. Nontender. NEUROLOGIC: Sleeping comfortably ASSESSMENT: 1. Sacral decubitus ulcer with necrotic skin and fat muscle on the right side status post debridement of sacral decubitus ulcer PLAN: -Consult palliative care service -Continue local wound care per wound care service -Continue antibiotics -Continue supportive care -Continue offloading Physician Alarm Signal Operator note has been reviewed by physician. Signing provider agrees with the documented findings, assessment, and plan of care. Objective - Vital Signs Vital signs: Vital Signs Temp 98.4 F 09/01/21 04:00 Pulse 106 H 09/01/21 08:00 Resp 18 09/01/21 08:00 BP 105/72 09/01/21 08:00 Pulse Ox 99 09/01/21 08:00 FiO2 Intake & Output 08/31/21 09/01/21 09/01/21 18:59 06:59 18:59 Intake Total 421 100 Output Total 880 935 Balance -459 835 Intake: Oral 421 100 Output: Urine 880 935 Other: Voiding Method Indwelling Catheter Indwelling Catheter - Labs CBC & Chem 7: 08/31/21 07:58 09/01/21 08:50 Labs: Abnormal Lab Results - Last 24 Hours (Table) 08/31/21 08/31/21 09/01/21 Range/Units 16:41 20:27 08:50 Chloride 111 H (98-107) mmol/L BUN 26 H (7-17) mg/dL Glucose 124 H (74-99) mg/dL POC Glucose (mg/dL) 114 H 150 H (70-110) mg/dL Calcium 7.6 L (8.4-10.2) mg/dL Microbiology - Last 24 Hours (Table) 08/25/21 16:06 Blood Culture - Final Blood No Growth after 144 hours
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
[2021-09-01] MEDS: COLLAGENASE 250 UNIT/GM OINTMENT 30 GM TUBE TOPICAL SCH (16:08)
[2021-09-01] MEDS: DILTIAZEM ORAL 60 MG TAB PO SCH ×2 (16:08→22:51)
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
[2021-09-01 17:03] LABS: Glucose,Whole Blood 174 mg/dL (70-110)
[2021-09-01 20:12] LABS: Glucose,Whole Blood 192 mg/dL (70-110)
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
[2021-09-01] MEDS: ACETAMINOPHEN TAB 325 MG TAB PO PRN (21:06)
[2021-09-01] MEDS: INSULIN DETEMIR (LEVEMIR) 100 UNIT/ML SYR SQ SCH (21:07)
[2021-09-01] MEDS ORDERED: MIDODRINE 5 MG TAB PO ONE (22:49)
[2021-09-02] MEDS: FUROSEMIDE 10 MG/ML 4 ML VIAL IV SCH ×2 (01:37→13:37)
[2021-09-02] MEDS: AMPICILLIN-SULBACTAM 3 GM in SODIUM CHLORIDE 0.9% 100 ML IVPB SCH ×4 (03:49→21:30)
[2021-09-02 06:43] LABS: Glucose,Whole Blood 77 mg/dL (70-110)
[2021-09-02] MEDS: INSULIN ASPART (NovoLOG) 100 UNIT/ML VIAL SQ SCH ×4 (06:43→20:23)
[2021-09-02] MEDS: PANTOPRAZOLE 40 MG/10 ML VIAL IV SCH (09:05)
[2021-09-02] MEDS: SODIUM BICARBONATE TAB 650 MG TAB PO SCH (09:05)
[2021-09-02] MEDS: DILTIAZEM ORAL 60 MG TAB PO SCH ×3 (09:05→21:30)
[2021-09-02] MEDS: APIXABAN 5 MG TAB PO SCH ×2 (09:05→20:22)
[2021-09-02] MEDS: METOPROLOL TARTRATE 50 MG TAB PO SCH ×2 (09:05→20:22)
[2021-09-02] MEDS: ATORVASTATIN 40 MG TAB PO SCH (09:05)
[2021-09-02] MEDS: NOREPINEPHRINE 4 MG in SODIUM CHLORIDE 0.9% 250 ML IV SCH (10:50)
[2021-09-02 11:24] LABS: Glucose,Whole Blood 142 mg/dL (70-110)
[2021-09-02] MEDS: MIDODRINE 5 MG TAB PO SCH ×3 (12:23→20:22)
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
[2021-09-02] MEDS: COLLAGENASE 250 UNIT/GM OINTMENT 30 GM TUBE TOPICAL SCH (13:37)
--- NOTE | 2021-09-02 13:42 | P.PN ---
Subjective Patient is seen for follow-up for acute kidney injury. Renal function has been improving Currently off of pressors Urine output 1.8 L. Serum creatinine down to 0.8 mg/dL. Patient is status post debridement of sacral decubitus ulcer on 08/29/2021 Maintained on IV Lasix Significant swelling in the upper extremities noted with blisters in the right hand, improving Objective - Vital Signs Vital signs: Vital Signs Temp 97.9 F 09/02/21 08:00 Pulse 95 09/02/21 08:00 Resp 18 09/02/21 08:00 BP 106/76 09/02/21 13:38 Pulse Ox 98 09/02/21 08:00 FiO2 Intake & Output 09/01/21 09/02/21 09/02/21 18:59 06:59 18:59 Intake Total 358 200 Output Total 950 525 Balance -592 -325 Intake: Oral 358 200 Output: Urine 950 525 Other: Voiding Method Indwelling Catheter Indwelling Catheter Indwelling Catheter - Exam Awake, comfortable, not in any acute distress Examination of the heart S1 and S2 Examination of lungs bilateral breath sounds are heard Abdomen is soft morbidly obese Examination of lower extremities shows chronic skin changes significant edema left lower extremity. Significant edema or upper extremities bilaterally with blister formation. Right AKA - Labs CBC & Chem 7: 08/31/21 07:58 09/01/21 08:50 Labs: Abnormal Lab Results - Last 24 Hours (Table) 09/01/21 09/01/21 09/02/21 Range/Units 16:40 20:11 11:23 POC Glucose (mg/dL) 174 H 192 H 142 H (70-110) mg/dL Assessment and Plan Assessment: 1. Acute kidney injury secondary to septic shock and ATN. Currently improved UA showed trace protein. No evidence of obstruction on ultrasound 2. Sacral decubitus ulcer, status post debridement 3. A. fib with RVR maintained on Cardizem drip 4. Metabolic acidosis associated with acute kidney injury and lactic acidosis and IV fluids. Maintained on oral sodium bicarb and status post IV bicarb. 5. Volume overload Plan: Continue IV Lasix Encourage increased oral intake Repeat labs in a.m.
[2021-09-02 16:25] LABS: Glucose,Whole Blood 201 mg/dL (70-110)
[2021-09-02 20:11] LABS: Glucose,Whole Blood 219 mg/dL (70-110)
[2021-09-02] MEDS: INSULIN DETEMIR (LEVEMIR) 100 UNIT/ML SYR SQ SCH (20:22)
[2021-09-03] MEDS: FUROSEMIDE 10 MG/ML 4 ML VIAL IV SCH ×2 (01:23→12:10)
[2021-09-03] MEDS: NOREPINEPHRINE 4 MG in SODIUM CHLORIDE 0.9% 250 ML IV SCH ×2 (01:44→15:52)
[2021-09-03] MEDS: AMPICILLIN-SULBACTAM 3 GM in SODIUM CHLORIDE 0.9% 100 ML IVPB SCH ×4 (04:32→21:38)
[2021-09-03 04:36] LABS: Albumin 2.1 g/dL (3.5-5.0); Bilirubin, Delta 0.3 mg/dL (0.0-0.2); Bilirubin,Unconjugated 0.5 mg/dL (0.0-1.1); Calcium 7.1 mg/dL (8.4-10.2); Magnesium 1.5 mg/dL (1.6-2.3); Potassium 3.1 mmol/L (3.5-5.1); Total Bilirubin 0.8 mg/dL (0.2-1.3); Total Protein 4.7 g/dL (6.3-8.2)
[2021-09-03 04:39] LABS: Anisocytosis Slight; Basophils % (A) 0 %; Eosinophils # (A) 0.1 k/uL (0-0.7); Eosinophils % (A) 1 %; HCT 26.7 % (34.0-46.0); HGB 8.7 gm/dL (11.4-16.0); Hypochromasia Moderate; Lymphocytes # (A) 0.9 k/uL (1.0-4.8); Lymphocytes % (A) 8 %; MCH 29.3 pg (25.0-35.0); MCHC 32.4 g/dL (31.0-37.0); MCV 90.4 fL (80.0-100.0); Monocytes # (A) 0.5 k/uL (0-1.0); Monocytes % (A) 4 %; Neutrophils # (A) 9.7 k/uL (1.3-7.7); Neutrophils % (A) 85 %; Platelet Count 346 k/uL (150-450); Poikilocytosis Slight; RBC 2.95 m/uL (3.80-5.40); RDW 17.9 % (11.5-15.5); WBC 11.5 k/uL (3.8-10.6)
[2021-09-03 06:36] LABS: Glucose,Whole Blood 93 mg/dL (70-110)
[2021-09-03] MEDS: INSULIN ASPART (NovoLOG) 100 UNIT/ML VIAL SQ SCH ×4 (06:37→21:38)
[2021-09-03] MEDS: MIDODRINE 5 MG TAB PO SCH ×3 (06:41→16:42)
[2021-09-03] MEDS ORDERED: Potassium Replacement Protocol 1 EACH MISC MISCELLANE PRN (07:42)
[2021-09-03] MEDS ORDERED: Magnesium Replacement Protocol 1 EACH MISC MISCELLANE PRN (07:42)
[2021-09-03] MEDS ORDERED: POTASSIUM BICARBONATE/CIT AC 20 MEQ TABLET.EFF NG-TUBE SCH (08:00)
--- NOTE | 2021-09-03 08:44 | P.PN ---
Subjective Progress Note Date: 09/02/21 She is doing well today. She continues to denies shortness of breath or chest pain. She is resting comfortably in bed. Heart rate is well-controlled today with a pulse of 70-80 as noted on telemetry. She had an episode of hypotension and her evening dose of Cardizem was held. Will decrease Cardizem back down to 30 mg 3 times a day Objective - Vital Signs Vital signs: Vital Signs Temp 97.9 F 09/02/21 08:00 Pulse 95 09/02/21 08:00 Resp 18 09/02/21 08:00 BP 125/80 09/02/21 08:00 Pulse Ox 98 09/02/21 08:00 FiO2 Intake & Output 09/01/21 09/02/21 09/02/21 18:59 06:59 18:59 Intake Total 358 200 Output Total 950 525 Balance -592 -325 Intake: Oral 358 200 Output: Urine 950 525 Other: Voiding Method Indwelling Catheter Indwelling Catheter Indwelling Catheter - Exam PHYSICAL EXAM: VITAL SIGNS: Reviewed. GENERAL: Well-developed in no acute distress. HEENT: Head is normocephalic. Pupils are equal, round. Sclerae anicteric. Mucous membranes of the mouth are moist. NECK: Supple. No JVD or thyromegaly RESPIRATORY: Respirations even and unlabored. Lungs diminished to auscultation bilaterally. CARDIO: irregular rate and rhythm. S1 and S2 heard. Systolic murmur at the apex EXTREMITIES: Normal range of motion. No clubbing or cyanosis. Peripheral pulses intact. Negative for bilateral lower extremity edema NEURO: Orientated to person, time, mood is appropriate - Labs CBC & Chem 7: 08/31/21 07:58 09/01/21 08:50 Labs: Abnormal Lab Results - Last 24 Hours (Table) 09/01/21 09/01/21 09/01/21 Range/Units 08:50 16:40 20:11 POC Glucose (mg/dL) 174 H 192 H (70-110) mg/dL Albumin 2.4 L (3.5-5.0) g/dL 09/02/21 Range/Units 11:23 POC Glucose (mg/dL) 142 H (70-110) mg/dL Albumin (3.5-5.0) g/dL Assessment and Plan Assessment: Persistent atrial fibrillation with poorly controlled ventricular rate Generalized edema History of hypertension episode of hypotension Plan: Continue Lopressor to 100 mg twice a day Cardizem to 30 mg every TID Continue with all other current cardiac medications Continue with Eliquis for anticoagulation Continue with telemetry monitoring Further recommendations based on clinical course The above impression and plan of care have been discussed and directed by the signing physician. Triny Cunha, nurse practitioner, acting as scribe for signing physician.
[2021-09-03] MEDS: PANTOPRAZOLE 40 MG/10 ML VIAL IV SCH (08:56)
[2021-09-03] MEDS: METOPROLOL TARTRATE 50 MG TAB PO SCH ×2 (08:57→21:37)
[2021-09-03] MEDS: APIXABAN 5 MG TAB PO SCH ×2 (08:57→21:37)
[2021-09-03] MEDS: DILTIAZEM ORAL 30 MG TAB PO SCH ×3 (08:57→21:37)
[2021-09-03] MEDS: ATORVASTATIN 40 MG TAB PO SCH (08:57)
[2021-09-03] MEDS: MAGNESIUM SULFATE-D5W PMX 1 GM in DEXTROSE/WATER 1 100ML.BAG IVPB SCH ×2 (08:57→12:10)
[2021-09-03] MEDS: SODIUM BICARBONATE TAB 650 MG TAB PO SCH (08:57)
[2021-09-03] MEDS: POTASSIUM BICARBONATE/CIT AC 20 MEQ TABLET.EFF PO SCH ×2 (08:58→11:09)
--- NOTE | 2021-09-03 09:28 | P.PN ---
Subjective Patient is seen for follow-up for acute kidney injury. Renal function has been improving Off of pressors and transferred out of ICU Urine output 1.4 L. Serum was creatinine down to 0.8 mg/dL. Patient is status post debridement of sacral decubitus ulcer on 08/29/2021 Maintained on IV Lasix. Creatinine today at 1.03 Significant swelling in the upper extremities noted with blisters in the right hand, currently improving Midodrine increased yesterday to 10 mg 3 times a day. Objective - Vital Signs Vital signs: Vital Signs Temp 97.7 F 09/03/21 04:33 Pulse 80 09/03/21 04:33 Resp 20 09/03/21 04:33 BP 101/55 09/03/21 04:33 Pulse Ox 98 09/03/21 04:33 FiO2 Intake & Output 09/02/21 09/03/21 09/03/21 18:59 06:59 18:59 Output Total 775 700 Balance -775 -700 Weight 148.5 kg Output: Urine 775 700 Other: Voiding Method Indwelling Catheter Indwelling Catheter - Exam Awake, comfortable, not in any acute distress Examination of the heart S1 and S2 Examination of lungs bilateral breath sounds are heard Abdomen is soft morbidly obese Examination of lower extremities shows chronic skin changes significant edema left lower extremity. Significant edema or upper extremities bilaterally with blister formation. Right AKA - Labs CBC & Chem 7: 09/03/21 03:29 09/03/21 03:22 Labs: Abnormal Lab Results - Last 24 Hours (Table) 09/02/21 09/02/21 09/02/21 Range/Units 11:23 16:23 20:09 WBC (3.8-10.6) k/uL RBC (3.80-5.40) m/uL Hgb (11.4-16.0) gm/dL Hct (34.0-46.0) % RDW (11.5-15.5) % Neutrophils # (1.3-7.7) k/uL Lymphocytes # (1.0-4.8) k/uL Potassium (3.5-5.1) mmol/L BUN (7-17) mg/dL Glucose (74-99) mg/dL POC Glucose (mg/dL) 142 H 201 H 219 H (70-110) mg/dL Calcium (8.4-10.2) mg/dL Magnesium (1.6-2.3) mg/dL Delta Bilirubin (0.0-0.2) mg/dL AST (14-36) U/L ALT (4-34) U/L Total Protein (6.3-8.2) g/dL Albumin (3.5-5.0) g/dL 09/03/21 09/03/21 Range/Units 03:22 03:29 WBC 11.5 H (3.8-10.6) k/uL RBC 2.95 L (3.80-5.40) m/uL Hgb 8.7 L (11.4-16.0) gm/dL Hct 26.7 L (34.0-46.0) % RDW 17.9 H (11.5-15.5) % Neutrophils # 9.7 H (1.3-7.7) k/uL Lymphocytes # 0.9 L (1.0-4.8) k/uL Potassium 3.1 L (3.5-5.1) mmol/L BUN 22 H (7-17) mg/dL Glucose 123 H (74-99) mg/dL POC Glucose (mg/dL) (70-110) mg/dL Calcium 7.1 L (8.4-10.2) mg/dL Magnesium 1.5 L (1.6-2.3) mg/dL Delta Bilirubin 0.3 H (0.0-0.2) mg/dL AST 53 H (14-36) U/L ALT 39 H (4-34) U/L Total Protein 4.7 L (6.3-8.2) g/dL Albumin 2.1 L (3.5-5.0) g/dL Assessment and Plan Assessment: 1. Acute kidney injury secondary to septic shock and ATN. Currently improved UA showed trace protein. No evidence of obstruction on ultrasound 2. Sacral decubitus ulcer, status post debridement 3. A. fib with RVR maintained on Cardizem drip 4. Metabolic acidosis associated with acute kidney injury and lactic acidosis and IV fluids. Maintained on oral sodium bicarb and status post IV bicarb. 5. Volume overload Plan: Continue IV Lasix Encourage increased oral intake Repeat labs in a.m. Check serum cortisol as blood pressure remains on the lower side Replace potassium.
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
[2021-09-03] MEDS: COLLAGENASE 250 UNIT/GM OINTMENT 30 GM TUBE TOPICAL SCH (11:09)
[2021-09-03 11:26] LABS: Glucose,Whole Blood 172 mg/dL (70-110)
--- NOTE | 2021-09-03 11:45 | P.PN ---
Subjective Progress Note Date: 09/03/21 Patient is examined today resting comfortably in bed with no signs of acute distress. She remains free from chest pain or increased shortness of breath. Patient remains on atrial fibrillation with a controlled ventricular rate. Her potassium and magnesium were stopped today. Her liver function tests continue to improve Vital signs are stable and she has had no further episodes of hyportension. Saskia greene continues on IV antibiotics for sacral wound Objective - Vital Signs Vital signs: Vital Signs Temp 97.8 F 09/03/21 08:00 Pulse 111 H 09/03/21 08:00 Resp 18 09/03/21 08:00 BP 134/70 09/03/21 08:00 Pulse Ox 98 09/03/21 08:00 FiO2 Intake & Output 09/02/21 09/03/21 09/03/21 18:59 06:59 18:59 Intake Total 200 Output Total 775 700 Balance -775 -700 200 Weight 148.5 kg Intake: Oral 200 Output: Urine 775 700 Other: Voiding Method Indwelling Catheter Indwelling Catheter Indwelling Catheter - Exam PHYSICAL EXAM: VITAL SIGNS: Reviewed. GENERAL: Well-developed in no acute distress. HEENT: Head is normocephalic. Pupils are equal, round. Sclerae anicteric. Mucous membranes of the mouth are moist. NECK: Supple. No JVD or thyromegaly RESPIRATORY: Respirations even and unlabored. Lungs diminished to auscultation b ilaterally. CARDIO: irregular rate and rhythm. S1 and S2 heard. Systolic murmur at the apex EXTREMITIES: Normal range of motion. No clubbing or cyanosis. Peripheral pulses intact. Negative for bilateral lower extremity edema NEURO: Orientated to person, time, mood is appropriate - Labs CBC & Chem 7: 09/03/21 03:29 09/03/21 03:22 Labs: Abnormal Lab Results - Last 24 Hours (Table) 09/02/21 09/02/21 09/03/21 Range/Units 16:23 20:09 03:22 WBC (3.8-10.6) k/uL RBC (3.80-5.40) m/uL Hgb (11.4-16.0) gm/dL Hct (34.0-46.0) % RDW (11.5-15.5) % Neutrophils # (1.3-7.7) k/uL Lymphocytes # (1.0-4.8) k/uL Potassium 3.1 L (3.5-5.1) mmol/L BUN 22 H (7-17) mg/dL Glucose 123 H (74-99) mg/dL POC Glucose (mg/dL) 201 H 219 H (70-110) mg/dL Calcium 7.1 L (8.4-10.2) mg/dL Magnesium 1.5 L (1.6-2.3) mg/dL Delta Bilirubin 0.3 H (0.0-0.2) mg/dL AST 53 H (14-36) U/L ALT 39 H (4-34) U/L Total Protein 4.7 L (6.3-8.2) g/dL Albumin 2.1 L (3.5-5.0) g/dL 09/03/21 09/03/21 Range/Units 03:29 11:25 WBC 11.5 H (3.8-10.6) k/uL RBC 2.95 L (3.80-5.40) m/uL Hgb 8.7 L (11.4-16.0) gm/dL Hct 26.7 L (34.0-46.0) % RDW 17.9 H (11.5-15.5) % Neutrophils # 9.7 H (1.3-7.7) k/uL Lymphocytes # 0.9 L (1.0-4.8) k/uL Potassium (3.5-5.1) mmol/L BUN (7-17) mg/dL Glucose (74-99) mg/dL POC Glucose (mg/dL) 172 H (70-110) mg/dL Calcium (8.4-10.2) mg/dL Magnesium (1.6-2.3) mg/dL Delta Bilirubin (0.0-0.2) mg/dL AST (14-36) U/L ALT (4-34) U/L Total Protein (6.3-8.2) g/dL Albumin (3.5-5.0) g/dL Assessment and Plan Assessment: Persistent atrial fibrillation with poorly controlled ventricular rate Generalized edema Acute kidney injury secondary Type 2 diabetes History of hypertension episode of hypotension Plan: Continue Lopressor to 100 mg twice a day and Cardizem to 30 mg every TID Continue with all other current cardiac medications Continue with Eliquis for anticoagulation Continue with telemetry monitoring Further recommendations based on clinical course The above impression and plan of care have been discussed and directed by the signing physician. Triny Cunha, nurse practitioner, acting as scribe for signing physician.
[2021-09-03] MEDS: HYDROcodone/APAP 5-325MG 1 EACH TAB PO PRN (12:11)
[2021-09-03 16:42] LABS: Glucose,Whole Blood 169 mg/dL (70-110)
[2021-09-03 20:20] LABS: Glucose,Whole Blood 219 mg/dL (70-110)
[2021-09-03] MEDS: INSULIN DETEMIR (LEVEMIR) 100 UNIT/ML SYR SQ SCH (21:38)
[2021-09-04] MEDS: FUROSEMIDE 10 MG/ML 4 ML VIAL IV SCH (00:06)
[2021-09-04] MEDS: NOREPINEPHRINE 4 MG in SODIUM CHLORIDE 0.9% 250 ML IV SCH (03:26)
[2021-09-04] MEDS: AMPICILLIN-SULBACTAM 3 GM in SODIUM CHLORIDE 0.9% 100 ML IVPB SCH ×2 (04:44→09:42)
[2021-09-04 06:15] LABS: Glucose,Whole Blood 118 mg/dL (70-110)
[2021-09-04] MEDS: INSULIN ASPART (NovoLOG) 100 UNIT/ML VIAL SQ SCH ×2 (06:19→13:02)
[2021-09-04] MEDS: MIDODRINE 5 MG TAB PO SCH ×2 (06:39→13:18)
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
--- NOTE | 2021-09-04 09:18 | P.PN ---
Subjective Patient is seen in follow-up for acute kidney injury. Renal function improved. On IV Lasix. Nonoliguric. Oral intake fair. Hemodynamically stable. Vital signs are stable. General: Awake. No acute distress. HEENT: Head exam is unremarkable. LUNGS: Breath sounds decreased. HEART: Regular rate and rhythm. ABDOMEN: Soft, no distention. EXTREMITITES: Right AKA noted. Lower extremity wrapped. Objective - Vital Signs Vital signs: Vital Signs Temp 97.5 F L 09/04/21 08:00 Pulse 118 H 09/04/21 08:00 Resp 21 09/04/21 08:00 BP 128/79 09/04/21 08:00 Pulse Ox 100 09/04/21 08:00 FiO2 Intake & Output 09/03/21 09/04/21 09/04/21 18:59 06:59 18:59 Intake Total 200 240 Output Total 1075 900 400 Balance -875 -660 -400 Weight 149.5 kg Intake: Oral 200 240 Output: Urine 1075 900 400 Uretheral (Hart) 300 Other: Voiding Method Indwelling Catheter Indwelling Catheter - Labs CBC & Chem 7: 09/03/21 03:29 09/03/21 03:22 Labs: Abnormal Lab Results - Last 24 Hours (Table) 09/03/21 09/03/21 09/03/21 Range/Units 11:25 16:41 20:19 POC Glucose (mg/dL) 172 H 169 H 219 H (70-110) mg/dL 09/04/21 Range/Units 06:14 POC Glucose (mg/dL) 118 H (70-110) mg/dL Assessment and Plan Plan: Assessment: 1. Acute kidney injury secondary to ATN secondary to septic shock. Creatinine 2.2 on admission - 1.03 yesterday. Unknown baseline renal function. UA with tr bell protein. Nonoliguric. No hydronephrosis noted on kidney ultrasound. 2. Sacral decubitus ulcer. On antibiotics. Status post surgical debridement. 3. A. fib with RVR maintained on metoprolol, Cardizem and anticoagulation. 4. Metabolic acidosis secondary to acute kidney injury and lactic acidosis. Improved. 5. Hypokalemia from diuresis. Replaced. 6. Hypomagnesemia from diuresis. Replaced. Plan: Change Lasix to 40 mg orally twice daily. Stop oral bicarbonate. Check iron studies. Follow-up morning labs and cortisol level. Maintain midodrine. Hold for systolic blood pressure greater than 115. Repeat BMP and magnesium level 2-3 days postdischarge. Follow up outpatient in 1 week.
[2021-09-04] MEDS: METOPROLOL TARTRATE 50 MG TAB PO SCH (09:32)
[2021-09-04] MEDS: ATORVASTATIN 40 MG TAB PO SCH (09:33)
[2021-09-04] MEDS: DILTIAZEM ORAL 30 MG TAB PO SCH (09:33)
[2021-09-04] MEDS: APIXABAN 5 MG TAB PO SCH (09:33)
[2021-09-04] MEDS: PANTOPRAZOLE 40 MG/10 ML VIAL IV SCH (09:34)
[2021-09-04 09:38] LABS: Anisocytosis Slight; Basophils # (A) 0.1 k/uL (0-0.2); Basophils % (A) 0 %; Eosinophils # (A) 0.1 k/uL (0-0.7); Eosinophils % (A) 1 %; HCT 25.7 % (34.0-46.0); HGB 8.4 gm/dL (11.4-16.0); Hypochromasia Slight; Lymphocytes # (A) 0.9 k/uL (1.0-4.8); Lymphocytes % (A) 7 %; MCH 29.2 pg (25.0-35.0); MCHC 32.7 g/dL (31.0-37.0); MCV 89.3 fL (80.0-100.0); Mean Platelet Volume 8.9; Monocytes # (A) 0.6 k/uL (0-1.0); Monocytes % (A) 4 %; Neutrophils # (A) 11.7 k/uL (1.3-7.7); Neutrophils % (A) 86 %; Platelet Count 305 k/uL (150-450); Poikilocytosis Slight; RBC 2.87 m/uL (3.80-5.40); RDW 18.2 % (11.5-15.5); WBC 13.6 k/uL (3.8-10.6)
[2021-09-04 09:43] LABS: Albumin 1.9 g/dL (3.5-5.0); Bilirubin, Delta 0.4 mg/dL (0.0-0.2); Bilirubin,Unconjugated 0.5 mg/dL (0.0-1.1); Calcium 7.1 mg/dL (8.4-10.2); Total Bilirubin 0.9 mg/dL (0.2-1.3); Total Protein 4.4 g/dL (6.3-8.2)
[2021-09-04 09:44] LABS: Magnesium 1.8 mg/dL (1.6-2.3); Potassium 4.4 mmol/L (3.5-5.1)
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
[2021-09-04 11:21] VITALS: BMI 60.2
[2021-09-04 11:32] LABS: Glucose,Whole Blood 110 mg/dL (70-110)
[2021-09-04 11:41] VITALS: BP 100/58; PULSE 95; RESP 18; TEMP 97.6
[2021-09-04] MEDS: COLLAGENASE 250 UNIT/GM OINTMENT 30 GM TUBE TOPICAL SCH (11:50)
--- NOTE | 2021-09-04 12:38 | P.PN ---
Subjective Progress Note Date: 09/04/21 HISTORY OF PRESENT ILLNESS: Patient examined this morning at the bedside. Patient denies chest pain or pressure. She denies shortness of breath. Telemetry reveals atrial fibrillati on with a heart rate in the 90s. Blood pressure 107/72. She's been transitioned to oral Lasix per nephrology. PHYSICAL EXAM: VITAL SIGNS: Reviewed. GENERAL: Well-developed in no acute distress. NECK: Supple. No JVD or thyromegaly LUNGS: Respirations even and unlabored. Lungs essentially clear to auscultation bilaterally. HEART: Irregular rate and rhythm. S1 and S2 heard. EXTREMITIES: Normal range of motion. No clubbing or cyanosis. Peripheral pulses intact. Trace lower extremity edema ASSESSMENT: Sepsis Infected sacral decubitus pressure ulcer s/p debridement Persistent atrial fibrillation Transaminitis Acute kidney injury PLAN: Continue current cardiac medications Patient is stable from a cardiac standpoint Patient to follow up post discharge Nurse practitioner note has been reviewed by physician. Signing provider agrees with the documented findings, assessment, and plan of care. Objective - Vital Signs Vital signs: Vital Signs Temp 97.6 F 09/04/21 11:40 Pulse 95 09/04/21 11:40 Resp 18 09/04/21 11:40 BP 100/58 09/04/21 11:40 Pulse Ox 98 09/04/21 11:40 FiO2 Intake & Output 09/03/21 09/04/21 09/04/21 18:59 06:59 18:59 Intake Total 200 240 Output Total 1075 900 400 Balance -875 -660 -400 Weight 149.5 kg 149.5 kg Intake: Oral 200 240 Output: Urine 1075 900 400 Uretheral (Hart) 300 Other: Voiding Method Indwelling Catheter Indwelling Catheter - Labs CBC & Chem 7: 09/04/21 08:34 09/04/21 08:34 Labs: Abnormal Lab Results - Last 24 Hours (Table) 09/03/21 09/03/21 09/04/21 Range/Units 16:41 20:19 06:14 WBC (3.8-10.6) k/uL RBC (3.80-5.40) m/uL Hgb (11.4-16.0) gm/dL Hct (34.0-46.0) % RDW (11.5-15.5) % Neutrophils # (1.3-7.7) k/uL Lymphocytes # (1.0-4.8) k/uL Chloride (98-107) mmol/L Carbon Dioxide (22-30) mmol/L BUN (7-17) mg/dL POC Glucose (mg/dL) 169 H 219 H 118 H (70-110) mg/dL Calcium (8.4-10.2) mg/dL Delta Bilirubin (0.0-0.2) mg/dL AST (14-36) U/L Total Protein (6.3-8.2) g/dL Albumin (3.5-5.0) g/dL 09/04/21 09/04/21 Range/Units 08:34 08:34 WBC 13.6 H (3.8-10.6) k/uL RBC 2.87 L (3.80-5.40) m/uL Hgb 8.4 L (11.4-16.0) gm/dL Hct 25.7 L (34.0-46.0) % RDW 18.2 H (11.5-15.5) % Neutrophils # 11.7 H (1.3-7.7) k/uL Lymphocytes # 0.9 L (1.0-4.8) k/uL Chloride 108 H (98-107) mmol/L Carbon Dioxide 21 L (22-30) mmol/L BUN 22 H (7-17) mg/dL POC Glucose (mg/dL) (70-110) mg/dL Calcium 7.1 L (8.4-10.2) mg/dL Delta Bilirubin 0.4 H (0.0-0.2) mg/dL AST 59 H (14-36) U/L Total Protein 4.4 L (6.3-8.2) g/dL Albumin 1.9 L (3.5-5.0) g/dL
--- NOTE | 2021-09-04 13:37 | P.PN ---
Subjective Progress Note Date: 09/04/21 CHIEF COMPLAINT: Sacral decubitus ulcer HISTORY OF PRESENT ILLNESS: Patient is status post debridement of sacral decubitus ulcer. She denies any buttocks pain. Patient scheduled to be transferred to [facility] today. Afebrile. WBC 13.6 HGB 8.4. Patient being discharged with IV antibiotics. Patient seen and examined with Dr. bray PHYSICAL EXAM: VITAL SIGNS: Reviewed. GENERAL: Well-developed in no acute distress. HEENT: No sclera icterus. Extraocular movements grossly intact. Moist buccal mucosa. Head is atraumatic, normocephalic. ABDOMEN: Soft. Nondistended. Nontender. ASSESSMENT: 1. Sacral decubitus ulcer with necrotic skin and fat muscle on the right side status post debridement of sacral decubitus ulcer PLAN: -Patient is stable for discharge from surgical standpoint -Continue local wound care per wound care service -Continue antibiotics per ID service -Continue supportive care -Continue offloading Physician [employer] Team Member note has been reviewed by physician. Signing provider agrees with the documented findings, assessment, and plan of care. Objective - Vital Signs Vital signs: Vital Signs Temp 97.6 F 09/04/21 11:40 Pulse 95 09/04/21 11:40 Resp 18 09/04/21 11:40 BP 100/58 09/04/21 11:40 Pulse Ox 98 09/04/21 11:40 FiO2 Intake & Output 09/03/21 09/04/21 09/04/21 18:59 06:59 18:59 Intake Total 200 240 Output Total 1075 900 400 Balance -309 -605 -422 Weight 149.5 kg 149.5 kg Intake: Oral 200 240 Output: Urine 1075 900 400 Uretheral (Hart) 300 Other: Voiding Method Indwelling Catheter Indwelling Catheter Indwelling Catheter - Labs CBC & Chem 7: 09/04/21 08:34 09/04/21 08:34 Labs: Abnormal Lab Results - Last 24 Hours (Table) 09/03/21 09/03/21 09/04/21 Range/Units 16:41 20:19 06:14 WBC (3.8-10.6) k/uL RBC (3.80-5.40) m/uL Hgb (11.4-16.0) gm/dL Hct (34.0-46.0) % RDW (11.5-15.5) % Neutrophils # (1.3-7.7) k/uL Lymphocytes # (1.0-4.8) k/uL Chloride (98-107) mmol/L Carbon Dioxide (22-30) mmol/L BUN (7-17) mg/dL POC Glucose (mg/dL) 169 H 219 H 118 H (70-110) mg/dL Calcium (8.4-10.2) mg/dL Delta Bilirubin (0.0-0.2) mg/dL AST (14-36) U/L Total Protein (6.3-8.2) g/dL Albumin (3.5-5.0) g/dL 09/04/21 09/04/21 Range/Units 08:34 08:34 WBC 13.6 H (3.8-10.6) k/uL RBC 2.87 L (3.80-5.40) m/uL Hgb 8.4 L (11.4-16.0) gm/dL Hct 25.7 L (34.0-46.0) % RDW 18.2 H (11.5-15.5) % Neutrophils # 11.7 H (1.3-7.7) k/uL Lymphocytes # 0.9 L (1.0-4.8) k/uL Chloride 108 H (98-107) mmol/L Carbon Dioxide 21 L (22-30) mmol/L BUN 22 H (7-17) mg/dL POC Glucose (mg/dL) (70-110) mg/dL Calcium 7.1 L (8.4-10.2) mg/dL Delta Bilirubin 0.4 H (0.0-0.2) mg/dL AST 59 H (14-36) U/L Total Protein 4.4 L (6.3-8.2) g/dL Albumin 1.9 L (3.5-5.0) g/dL
[2021-09-04] MEDS ORDERED: FUROSEMIDE 40 MG TAB PO SCH (16:00)
== END 2021-09-04 13:50 | DRG 853 ==
LOC: EC 12:51 → 3SCARD 18:30 → 2SICU 23:16 → 3SCARD 08-31 00:18
PROVIDERS: ADMIT Internal Medicine; ATTEND Internal Medicine
PROC: 3E043XZ Introduction of Vasopressor into Central Vein, Percutaneous Approach (ICD-10-PCS; 2021-08-25)
PROC: 02HV33Z Insertion of Infusion Device into Superior Vena Cava, Percutaneous Approach (ICD-10-PCS; 2021-08-28)
PROC: 0KBN0ZZ Excision of Right Hip Muscle, Open Approach (ICD-10-PCS; principal; 2021-08-29 11:15)
PROC: 0KBP0ZZ Excision of Left Hip Muscle, Open Approach (ICD-10-PCS; principal; 2021-08-29 11:15)
DX: A41.9 Sepsis, unspecified organism (principal); L89.154 Pressure ulcer of sacral region, stage 4; N17.0 Acute kidney failure with tubular necrosis; R65.21 Severe sepsis with septic shock; L89.314 Pressure ulcer of right buttock, stage 4; L89.324 Pressure ulcer of left buttock, stage 4; E87.2 Acidosis; L97.129 Non-pressure chronic ulcer of left thigh with unspecified severity; E11.52 Type 2 diabetes mellitus with diabetic peripheral angiopathy with gangrene; I48.19 Other persistent atrial fibrillation; L03.90 Cellulitis, unspecified; Z68.43 Body mass index [BMI] 50.0-59.9, adult; D63.8 Anemia in other chronic diseases classified elsewhere; E11.65 Type 2 diabetes mellitus with hyperglycemia; E66.01 Morbid (severe) obesity due to excess calories; I12.9 Hypertensive chronic kidney disease with stage 1 through stage 4 chronic kidney disease, or unspecified chronic kidney disease; Z89.611 Acquired absence of right leg above knee; N18.9 Chronic kidney disease, unspecified; E11.22 Type 2 diabetes mellitus with diabetic chronic kidney disease; L89.892 Pressure ulcer of other site, stage 2; D63.1 Anemia in chronic kidney disease; B87.1 Wound myiasis; L89.622 Pressure ulcer of left heel, stage 2; R77.8 Other specified abnormalities of plasma proteins; Z28.310 Unvaccinated for COVID-19; Z20.822 Contact with and (suspected) exposure to COVID-19; R32 Unspecified urinary incontinence; T50.2X5A Adverse effect of carbonic-anhydrase inhibitors, benzothiadiazides and other diuretics, initial encounter; E83.42 Hypomagnesemia; R31.9 Hematuria, unspecified; E86.0 Dehydration; Y92.002 Bathroom of unspecified non-institutional (private) residence as the place of occurrence of the external cause; W01.0XXA Fall on same level from slipping, tripping and stumbling without subsequent striking against object, initial encounter; Z51.5 Encounter for palliative care; E86.1 Hypovolemia; E78.5 Hyperlipidemia, unspecified; E87.6 Hypokalemia; E87.70 Fluid overload, unspecified; Z79.01 Long term (current) use of anticoagulants; Z79.4 Long term (current) use of insulin; Z79.899 Other long term (current) drug therapy; Z99.3 Dependence on wheelchair; Z91.81 History of falling
CPT/HCPCS: 36415; 36573; 71045; 71046; 72220; 76770; 80048; 80053; 80076; 80202; 81001; 82040; 83036; 83605; 83735; 84484; 85025; 85610; 85730; 87040; 87086; 87635; 88304; 93005; 96361; 96365; 96366; 96367; 96375; 99291